=== PATIENT | male | born 1975 | race Caucasian/White ===

== ENCOUNTER 2018-12-03 19:41 | Observation (INO) | payer BC ==
[2018-12-03] MEDS ORDERED: Ondansetron 4 MG/2 ML SDV IVPUSH ONE (21:11)
[2018-12-03] MEDS ORDERED: Ketorolac 30 MG/ML SDV IVPUSH ONE (21:11)
[2018-12-03] MEDS ORDERED: Sodium Chloride 0.9% 1,000 ML IV ONE (21:11)
[2018-12-03] MEDS ORDERED: Promethazine 25 MG/ML SDV IM ONE (21:55)
[2018-12-03 21:59] LABS: CHLORIDE,CL 97 mmol/L (98-107); SODIUM,NA 132 mmol/L (136-148)
--- NOTE | 2018-12-03 22:16 | EDM.PDOC ---
ED HPI GENERAL MEDICAL PROBLEM - General Chief Complaint: Genitourinary Problem Stated Complaint: BLADDER INFECTION Time Seen by Provider: 12/03/18 22:14 Source of Information: Reports: Patient - History of Present Illness INITIAL COMMENTS - FREE TEXT/NARRATIVE: HISTORY AND PHYSICAL: History of present illness: []Patient presents with complaint of dysuria initially, so complained of crampy sensation over his bladder After approximately 30 minutes here in the ER he began to complain of kidney pain and lower abdominal pain as well as low-grade temperature 100.4 nausea No vomiting chills sweats no chest pain shortness breath headache dizziness palpitation no bowel symptoms Review of systems: As per history of present illness and below otherwise all systems reviewed and negative. Past medical history: As per history of present illness and as reviewed below otherwise noncontributory. Surgical history: As per history of present illness and as reviewed below otherwise noncontributory. Social history: No reported history of drug or alcohol abuse. Family history: As per history of present illness and as reviewed below otherwise noncontributory. Physical exam: HEENT: Atraumatic, normocephalic, pupils reactive, negative for conjunctival pallor or scleral icterus, mucous membranes moist, throat clear, neck supple, nontender, trachea midline. Lungs: Clear to auscultation, breath sounds equal bilaterally, chest nontender. Heart: S1S2, regular, negative for clicks, rubs, or JVD. Abdomen: Soft, nondistended, tender in right lower quadrant with guarding Negative for masses or hepatosplenomegaly. Negative for costovertebral tenderness. Pelvis: Stable nontender. Genitourinary: Deferred. Rectal: Deferred. Extremities: Atraumatic, negative for cords or calf pain. Neurovascular unremarkable. Neuro: Awake, alert, oriented. Cranial nerves II through XII unremarkable. Cerebellum unremarkable. Motor and sensory unremarkable throughout. Exam nonfocal. Diagnostics: [CBC CMP UA cultures 2 lactic whole blood, troponin lipase Chest x-ray CT abdomen pelvis with and without contrast ] EKG Therapeutics: [Normal saline Toradol Zofran Phenergan 25 mg IM 1 g Rocephin IM ] Impression: [ fever Abdominal pain] Definitive disposition and diagnosis as appropriate pending reevaluation and review of above. Treatments [employer]PER[employer]OR W[employer]OUR: Reports: NSAIDS general Pain Score (Numeric/FACES): 9 Right Lower Abdominal Pain Score (Numeric/FACES): 0 Left Lower Abdomen Pain Score (Numeric/FACES): 7 Chest Pain Score (Numeric/FACES): 7 - Related Data Allergies Allergy/AdvReac Type Severity Reaction Status Date / Time exenatide [From Bydureon] Allergy Rash Verified 12/04/18 09:11 metformin Allergy Rash Verified 12/03/18 19:58 morphine Allergy Rash Verified 09/18/14 10:54 pentazocine [From Talwin] Allergy Rash Verified 12/04/18 09:07 Home Meds: Home Meds Lisinopril 30 mg PO DAILY 09/18/14 [History] Amitriptyline [Elavil] 50 mg PO 12/03/18 [History] Dapagliflozin Propanediol [Farxiga] 10 mg PO DAILY 12/03/18 [History] Insulin Degludec [Tresiba] 50 unit SQ DAILY 12/03/18 [History] Rosuvastatin [Crestor] 5 mg PO DAILY 12/03/18 [History] hydroCHLOROthiazide [Hydrochlorothiazide] 12.5 mg PO DAILY 12/03/18 [History] Dulaglutide [Trulicity] 1.5 mg SQ WEEKLY 12/04/18 [History] amLODIPine [Norvasc] 2.5 mg PO DAILY 12/04/18 [History] Levofloxacin 750 mg PO DAILY #3 tablet 12/06/18 [Rx] Past Medical History HEENT History: Reports: Impaired Vision Cardiovascular History: Reports: High Cholesterol, Hypertension Respiratory History: Reports: None Gastrointestinal History: Reports: None Genitourinary History: Reports: None Musculoskeletal History: Reports: Arthritis Neurological History: Reports: None, Migraines Psychiatric History: Reports: None Endocrine/Metabolic History: Reports: Diabetes, Type II Hematologic History: Reports: None Oncologic (Cancer) History: Reports: None Dermatologic History: Reports: None - Infectious Disease History Infectious Disease History: Reports: Chicken Pox Social & Family History - Family History Family Medical History: Noncontributory - Tobacco Use Smoking Status *Q: Former Smoker Used Tobacco, but Quit: Yes Month/Year Tobacco Last Used: 1999 - Recreational Drug Use Recreational Drug Use: Yes Course - Vital Signs Last Recorded V/S: Last Vital Signs Temp 97.1 F 12/06/18 07:24 Pulse 82 12/06/18 07:24 Resp 18 12/06/18 07:24 BP 153/96 H 12/06/18 07:24 Pulse Ox 94 L 12/06/18 07:24 - Orders/Labs/Meds Labs: Laboratory Tests 12/03/18 12/03/18 12/03/18 Range/Units 20:10 20:10 21:28 WBC 24.60 H (4.0-11.0) K/uL RBC 5.48 (4.50-5.90) M/uL Hgb 16.0 (13.0-17.0) g/dL Hct 46.9 (38.0-50.0) % MCV 85.6 (80.0-98.0) fL MCH 29.2 (27.0-32.0) pg MCHC 34.1 (31.0-37.0) g/dL RDW Std Deviation 41.4 (28.0-62.0) fl RDW Coeff of Papo 13 (11.0-15.0) % Plt Count 214 (150-400) K/uL MPV 11.00 (7.40-12.00) fL Add Manual Diff YES Neutrophils % (Manual) 76 (48.0-80.0) % Band Neutrophils % 11 % Lymphocytes % (Manual) 8 L (16.0-40.0) % Monocytes % (Manual) 5 (0.0-15.0) % Nucleated RBC % 0.0 /100WBC Absolute Seg Neuts 18.7 H (1.4-5.7) Band Neutrophils # 2.7 Lymphocytes # (Manual) 2.0 (0.6-2.4) Monocytes # (Manual) 1.2 H (0.0-0.8) Nucleated RBCs # 0 K/uL Lactate (0.20-2.00) mmol/L Sodium (136-148) mmol/L Potassium (3.5-5.1) mmol/L Chloride (98-107) mmol/L Carbon Dioxide (21.0-32.0) mmol/L BUN (7.0-18.0) mg/dL Creatinine (0.8-1.3) mg/dL Est Cr Clr Drug Dosing mL/min Estimated GFR (MDRD) ml/min Glucose (74-106) mg/dL Calcium (8.5-10.1) mg/dL Total Bilirubin (0.2-1.0) mg/dL AST (15-37) IU/L ALT (14-63) IU/L Alkaline Phosphatase (46-116) U/L Troponin I (0.000-0.056) ng/mL Total Protein (6.4-8.2) g/dL Albumin (3.4-5.0) g/dL Globulin (2.6-4.0) g/dL Albumin/Globulin Ratio (0.9-1.6) Lipase (73-393) U/L Urine Color YELLOW Urine Appearance CLEAR Urine pH 5.5 (5.0-8.0) Ur Specific [place] 1.010 (1.001-1.035) Urine Protein NEGATIVE (NEGATIVE) mg/dL Urine Glucose (UA) >=1000 (NEGATIVE) mg/dL Urine Ketones NEGATIVE (NEGATIVE) mg/dL Urine Occult Blood NEGATIVE (NEGATIVE) Urine Nitrite NEGATIVE (NEGATIVE) Urine Bilirubin NEGATIVE (NEGATIVE) Urine Urobilinogen 0.2 (<2.0) EU/dL Ur Leukocyte Esterase NEGATIVE (NEGATIVE) Chlamydia/GC Source URINE C.trachomatis RNA (TMA) Negative (Negative) N.gonorrhoeae RNA (TMA) Negative (Negative) 12/03/18 12/03/18 12/03/18 Range/Units 21:28 21:28 21:28 WBC (4.0-11.0) K/uL RBC (4.50-5.90) M/uL Hgb (13.0-17.0) g/dL Hct (38.0-50.0) % MCV (80.0-98.0) fL MCH (27.0-32.0) pg MCHC (31.0-37.0) g/dL RDW Std Deviation (28.0-62.0) fl RDW Coeff of Papo (11.0-15.0) % Plt Count (150-400) K/uL MPV (7.40-12.00) fL Add Manual Diff Neutrophils % (Manual) (48.0-80.0) % Band Neutrophils % % Lymphocytes % (Manual) (16.0-40.0) % Monocytes % (Manual) (0.0-15.0) % Nucleated RBC % /100WBC Absolute Seg Neuts (1.4-5.7) Band Neutrophils # Lymphocytes # (Manual) (0.6-2.4) Monocytes # (Manual) (0.0-0.8) Nucleated RBCs # K/uL Lactate 2.0 (0.20-2.00) mmol/L Sodium 132 L (136-148) mmol/L Potassium 3.6 (3.5-5.1) mmol/L Chloride 97 L (98-107) mmol/L Carbon Dioxide 23.8 (21.0-32.0) mmol/L BUN 18 (7.0-18.0) mg/dL Creatinine 1.2 (0.8-1.3) mg/dL Est Cr Clr Drug Dosing 90.38 mL/min Estimated GFR (MDRD) > 60.0 ml/min Glucose 178 H (74-106) mg/dL Calcium 9.5 (8.5-10.1) mg/dL Total Bilirubin 1.5 H (0.2-1.0) mg/dL AST 19 (15-37) IU/L ALT 37 (14-63) IU/L Alkaline Phosphatase 82 (46-116) U/L Troponin I < 0.050 (0.000-0.056) ng/mL Total Protein 8.3 H (6.4-8.2) g/dL Albumin 4.3 (3.4-5.0) g/dL Globulin 4.0 (2.6-4.0) g/dL Albumin/Globulin Ratio 1.1 (0.9-1.6) Lipase 100 (73-393) U/L Urine Color Urine Appearance Urine pH (5.0-8.0) Ur Specific [place] (1.001-1.035) Urine Protein (NEGATIVE) mg/dL Urine Glucose (UA) (NEGATIVE) mg/dL Urine Ketones (NEGATIVE) mg/dL Urine Occult Blood (NEGATIVE) Urine Nitrite (NEGATIVE) Urine Bilirubin (NEGATIVE) Urine Urobilinogen (<2.0) EU/dL Ur Leukocyte Esterase (NEGATIVE) Chlamydia/GC Source C.trachomatis RNA (TMA) (Negative) N.gonorrhoeae RNA (TMA) (Negative) Meds: Medications Discontinued Medications Generic Name Dose Route Start Last Admin Trade Name Freq PRN Reason Stop Dose Admin Acetaminophen 650 mg 12/05/18 16:59 12/05/18 17:09 Tylenol PO 650 mg Q6H PRN Administration Pain Artificial Tears 1 each 12/04/18 17:36 12/04/18 18:55 Refresh Plus 0.5% EYEBOTH 1 drop Q2H PRN Administration Dry Eyes Bupivacaine HCl Confirm 12/04/18 11:10 Marcaine 0.5% Administered 12/04/18 11:11 Dose 30 ml .ROUTE .STK-MED ONE Diphenhydramine HCl 50 mg 12/04/18 01:15 Benadryl IVPUSH Q4H PRN Itching Enoxaparin Sodium 40 mg 12/05/18 14:30 12/05/18 15:20 Lovenox SUBCUT 40 mg Q24H DEMARIO Administration Fentanyl Confirm 12/04/18 11:03 Sublimaze Administered 12/04/18 11:04 Dose 250 mcg .ROUTE .STK-MED ONE Glycopyrrolate Confirm 12/04/18 11:05 Robinul Administered 12/04/18 11:06 Dose 0.8 mg .ROUTE .STK-MED ONE Hydralazine HCl 10 mg 12/04/18 01:22 Apresoline IVPUSH Q4H PRN Hypertension Hydromorphone HCl 1 mg 12/03/18 22:41 12/03/18 22:49 Dilaudid IVPUSH 12/03/18 22:42 1 mg ONETIME ONE Administration Hydromorphone HCl 0.5 mg 12/04/18 01:15 Dilaudid IVPUSH Q1H PRN Pain (severe 7-10) Hydromorphone HCl 0.5 mg 12/04/18 02:05 12/04/18 10:06 Dilaudid IV 0.5 mg Q1H PRN Administration pain Sodium Chloride 1,000 mls @ 999 mls/hr 12/03/18 21:11 12/03/18 21:30 Normal Saline IV 12/03/18 22:11 999 mls/hr STAT ONE Administration Sodium Chloride 1,000 mls @ 125 mls/hr 12/03/18 23:00 12/04/18 21:44 Normal Saline IV 400 mls/hr STAT DEMARIO Administration Ceftriaxone Sodium/Dextrose 1 50 mls @ 100 mls/hr 12/03/18 23:12 12/03/18 23: 35 gm/ Premix IV 12/03/18 23:41 100 mls/hr ONETIME ONE Administration Piperacillin Sod/Tazobactam 50 mls @ 100 mls/hr 12/04/18 01:15 12/06/18 06:31 Sod 3.375 gm/ Sodium Chloride IV 100 mls/hr Q6H DEMARIO Administration Sodium Chloride 1,000 mls @ 150 mls/hr 12/04/18 01:15 12/05/18 10:27 Normal Saline IV 150 mls/hr ASDIRECTED DEMARIO Administration Sodium Chloride 1,000 mls @ 1,000 mls/hr 12/04/18 01:27 12/04/18 02:35 Normal Saline IV 12/04/18 02:26 Not Given .Bolus ONE Acetaminophen 1,000 mg/ Premix 100 mls @ 400 mls/hr 12/04/18 14:45 12/05/18 09:19 IV 12/05/18 14:51 400 mls/hr Q6H DEMARIO Administration Insulin Aspart 0 unit 12/04/18 07:30 12/06/18 07:40 Novolog SUBCUT 1 unit ACBREAKFASTANDBED DEMARIO Administration Protocol Iopamidol 100 ml 12/03/18 22:31 12/03/18 22:31 Isovue Multipack-370 (76%) IVPUSH 12/03/18 22:32 100 ml ONETIME STA Administration Ketorolac Tromethamine 30 mg 12/03/18 21:11 12/03/18 21:31 Toradol IVPUSH 12/03/18 21:12 30 mg ONETIME ONE Administration Ketorolac Tromethamine 30 mg 12/04/18 19:00 12/06/18 06:27 Toradol IVPUSH 12/09/18 16:58 30 mg Q6H DEMARIO Administration Neostigmine Methylsulfate Confirm 12/04/18 11:05 Neostigmine Administered 12/04/18 11:06 Dose 5 mg .ROUTE .STK-MED ONE Ondansetron HCl 8 mg 12/03/18 21:11 12/03/18 21:31 Zofran IVPUSH 12/03/18 21:12 8 mg ONETIME ONE Administration Ondansetron HCl 4 mg 12/04/18 01:15 Zofran IVPUSH Q6H PRN Nausea/Vomiting Ondansetron HCl Confirm 12/04/18 11:06 Zofran Administered 12/04/18 11:07 Dose 4 mg .ROUTE .STK-MED ONE Oxycodone HCl 10 mg 12/04/18 16:57 12/04/18 18:56 Oxycodone PO 10 mg Q4H PRN Administration Abdominal Pain Oxycodone/Acetaminophen 2 tab 12/04/18 01:15 12/04/18 06:26 Percocet 325-5 Mg PO 2 tab Q4H PRN Administration Pain (moderate 4-6) Pantoprazole Sodium 40 mg 12/04/18 01:30 12/06/18 08:14 Protonix Iv IVPUSH 40 mg DAILY DEMARIO Administration Phenylephrine HCl Confirm 12/04/18 11:48 Phenylephrine In Ns 100 Mcg/Ml Administered 12/04/18 11:49 Dose 1 mg .ROUTE .STK-MED ONE Polyethylene Glycol 17 gm 12/05/18 12:22 12/05/18 12:38 Miralax PO 17 gm DAILY PRN Administration Constipation Polyethylene Glycol 17 gm 12/06/18 09:00 12/06/18 08:14 Miralax PO 17 gm DAILY DEMARIO Administration Promethazine HCl 25 mg 12/03/18 21:55 12/04/18 00:22 Phenergan IM 12/03/18 21:56 Not Given ONETIME ONE Promethazine HCl 25 mg 12/04/18 01:15 Phenergan IM Q6H PRN Nausea Propofol Confirm 12/04/18 11:03 Diprivan 20 Ml Administered 12/04/18 11:04 Dose 200 mg .ROUTE .STK-MED ONE Sodium Chloride 10 ml 12/04/18 01:15 Saline Flush FLUSH ASDIRECTED PRN Keep Vein Open Sodium Chloride 2.5 ml 12/04/18 01:15 Saline Flush FLUSH ASDIRECTED PRN Keep Vein Open Sodium Chloride 10 ml 12/04/18 01:15 Normal Saline IV ASDIRECTED PRN IV Use Succinylcholine Chloride Confirm 12/04/18 11:05 Quelicin Administered 12/04/18 11:06 Dose 200 mg .ROUTE .STK-MED ONE Departure - Departure Time of Disposition: 06:45 Disposition: Refer to Observation Condition: Fair Clinical Impression: Abdominal pain - Discharge Information
[2018-12-03] MEDS ORDERED: Iopamidol 755 MG/ML 500 ML Multipack Bottle IVPUSH STA (22:31)
[2018-12-03] MEDS ORDERED: HYDROmorphone 1 MG/ML Syringe IVPUSH ONE (22:41)
--- NOTE | 2018-12-03 22:46 | CR ---
Indication: Chest pain, shortness of breath Technique: Chest 1 view Comparison: None Findings/Impression: Normal cardiomediastinal silhouette. Minimal linear atelectasis or infiltrate at the left lung base. Calcified granuloma left upper lobe. No effusion or pneumothorax. No acute osseous abnormality. Dictated by Demi Espinal MD @ Dec 03 2018 10:45PM Signed by Dr. Demi Espinal @ Dec 03 2018 10:45PM
[2018-12-03] MEDS: Sodium Chloride 0.9% 1,000 ML IV SCH (23:02)
--- NOTE | 2018-12-03 23:07 | CT ---
INDICATION: Urinary and kidney pain, constipation TECHNIQUE: CT abdomen and pelvis acquired without and with 100 cc Isovue 370 IV contrast. COMPARISON: None FINDINGS: Lower chest: Linear atelectasis at both lung bases, left greater than right. Liver: Unremarkable. Spleen: Unremarkable. Pancreas: Unremarkable. Gallbladder and bile ducts: Unremarkable. Adrenal glands: Unremarkable. Kidneys: Noncontrast images demonstrate no collecting system stone. No hydronephrosis. GI tract: Moderate amount of feces in the colon. No bowel obstruction. Vascular structures: Unremarkable. Lymph nodes: Unremarkable. Miscellaneous: Unremarkable. No free air or significant free fluid. Pelvic Organs: Unremarkable. Bones: Unremarkable for age. IMPRESSION: No renal stone or hydronephrosis. Unremarkable urinary bladder. Moderate amount of feces in the colon. No acute intra-abdominal inflammatory process identified. Please note that all CT scans at this facility use dose modulation, iterative reconstruction, and/or weight-based dosing when appropriate to reduce radiation dose to as low as reasonably achievable. Dictated by Demi Espinal MD @ Dec 03 2018 10:59PM Signed by Dr. Demi Espinal @ Dec 03 2018 11:06PM
[2018-12-03] MEDS ORDERED: cefTRIAXone 1 GM in Premix Bag 1 BAG IV ONE (23:12)
--- NOTE | 2018-12-04 00:22 | US ---
INDICATION: Abdominal pain for 1 day TECHNIQUE: Ultrasound abdomen limited. Sonographic images of the right upper quadrant were obtained using damon-scale and color Doppler images. COMPARISON: None FINDINGS: Study somewhat limited due to patient body habitus. Liver: Normal in size and echotexture. No masses. No intrahepatic biliary dilatation. Gallbladder: No stones or sludge. Normal wall thickness. No pericholecystic fluid. Common bile duct: 3 mm. Pancreas: Not clearly seen. Right kidney: 13.3 x 7.6 x 7.0 cm. Normal echotexture and cortex. No masses, stones, or hydronephrosis. IMPRESSION: Limited exam due to patient body habitus. No cholelithiasis or acute abnormality identified. Note that the pancreas was poorly visualized. Dictated by Demi Espinal MD @ Dec 04 2018 12:20AM Signed by Dr. Demi Espinal @ Dec 04 2018 12:20AM
[2018-12-04] MEDS ORDERED: Sodium Chloride 0.9% 10 ML Syringe FLUSH PRN (01:15)
[2018-12-04] MEDS ORDERED: Sodium Chloride 0.9% 10 ML SDV IV PRN (01:15)
[2018-12-04] MEDS ORDERED: diphenhydrAMINE 50 MG/ML SDV IVPUSH PRN (01:15)
[2018-12-04] MEDS ORDERED: HYDROmorphone 2 MG/ML SDV IVPUSH PRN (01:15)
[2018-12-04] MEDS ORDERED: Sodium Chloride 0.9% 2.5 ML Syringe FLUSH PRN (01:15)
[2018-12-04] MEDS ORDERED: Promethazine 25 MG/ML SDV IM PRN (01:15)
[2018-12-04] MEDS ORDERED: Ondansetron 4 MG/2 ML SDV IVPUSH PRN (01:15)
[2018-12-04] MEDS ORDERED: hydrALAZINE 20 MG/ML SDV IVPUSH PRN (01:22)
[2018-12-04] MEDS ORDERED: Sodium Chloride 0.9% 1,000 ML IV ONE (01:27)
[2018-12-04] MEDS: Acetaminophen/oxyCODONE 325-5 MG Tab PO PRN ×2 (01:30→06:26)
[2018-12-04] MEDS: Piperacillin/Tazobactam 3.375 GM in Sodium Chloride 0.9% 50 ML IV SCH ×4 (01:31→18:58)
--- NOTE | 2018-12-04 01:34 | PCM.HP ---
H&P History of Present Illness - General Date of Service: 12/04/18 Admit Problem/Dx: Admission Diagnosis/Problem Admission Diagnosis/Problem Abdominal pain Source of Information: Patient History Limitations: Reports: No Limitations - History of Present Illness Initial Comments - Free Text/Narative: Patient is a 43 year old male with a history of diabetes and hypertension who presents with lower abdominal pain and dysuria since yesterday afternoon. This was associated nausea. He complained of urgency as well. The pain radiated to his back bilaterally. He had a normal BM yesterday. He denies fevers, chills before admission. He was tachycardic on arrival. He developed a fever while in the ER. His WBC was 24K and he had a lactate of 2.0. He had no left shift. An US was performed which was normal, however the study was limited by his body habitus. He had a CT abdomen/pelvis with IV fluids. This was normal as well however the appendix was not visualized. He was given 1 L IV fluids, toradol and dilaudid with improvement in his fever, pain and tachycardia. general Pain Score (Numeric/FACES): 9 - Related Data Allergies/Adverse Reactions: Allergies Allergy/AdvReac Type Severity Reaction Status Date / Time acetaminophen [From [place]] Allergy Rash Verified 09/18/14 10:54 metformin Allergy Rash Verified 12/03/18 19:58 morphine Allergy Rash Verified 09/18/14 10:54 pentazocine HCl Allergy Rash Verified 09/18/14 10:54 [From [place]] Home Medications: Home Meds Dulaglutide [Trulicity] 0.75 mg SQ WEEKLY 09/18/14 [History] Lisinopril 30 mg PO DAILY 09/18/14 [History] Amitriptyline [Elavil] 10 mg PO 12/03/18 [History] Dapagliflozin Propanediol [Farxiga] 10 mg PO DAILY 12/03/18 [History] Insulin Degludec [Tresiba] 50 unit SQ DAILY 12/03/18 [History] Rosuvastatin [Crestor] 5 mg PO DAILY 12/03/18 [History] hydroCHLOROthiazide [Hydrochlorothiazide] 12.5 mg PO DAILY 12/03/18 [History] Past Medical History HEENT History: Reports: Impaired Vision Cardiovascular History: Reports: High Cholesterol, Hypertension Respiratory History: Reports: None Gastrointestinal History: Reports: None Genitourinary History: Reports: None Musculoskeletal History: Reports: Arthritis Neurological History: Reports: None, Migraines Psychiatric History: Reports: None Endocrine/Metabolic History: Reports: Diabetes, Type II Hematologic History: Reports: None Oncologic (Cancer) History: Reports: None Dermatologic History: Reports: None - Infectious Disease History Infectious Disease History: Reports: Chicken Pox Social & Family History - Family History Family Medical History: Noncontributory - Tobacco Use Smoking Status *Q: Former Smoker Used Tobacco, but Quit: Yes Month/Year Tobacco Last Used: 1999 - Recreational Drug Use Recreational Drug Use: Yes H&P Review of Systems - Review of Systems: Review Of Systems: See Below Exam - Exam Exam: See Below - Vital Signs Vital Signs: Last Vital Signs Temp 38.6 C H 12/03/18 23:03 Pulse 109 H 12/03/18 23:03 Resp 20 12/03/18 23:03 BP 131/90 12/03/18 23:03 Pulse Ox 93 L 12/03/18 23:03 Weight: 142.882 kg - Exam General: Alert, Oriented HEENT: Conjunctiva Clear, Mucosa Moist & [place], Posterior Pharynx Clear Neck: Supple Lungs: Clear to Auscultation, Normal Respiratory Effort Cardiovascular: Regular Rate, Regular Rhythm GI/Abdominal Exam: Normal Bowel Sounds, Soft, No Distention, No Mass, Tender ( mild-moderate tenderness along the lower abdomen. ). No: Guarding, Rigid, Rebound Back Exam: Normal Inspection, Full Range of Motion Extremities: Normal Inspection - Patient Data Lab Results Last 24 hrs: Laboratory Results - last 24 hr 12/03/18 12/03/18 12/03/18 Range/Units 20:10 21:28 21:28 WBC 24.60 H (4.0-11.0) K/uL RBC 5.48 (4.50-5.90) M/uL Hgb 16.0 (13.0-17.0) g/dL Hct 46.9 (38.0-50.0) % MCV 85.6 (80.0-98.0) fL MCH 29.2 (27.0-32.0) pg MCHC 34.1 (31.0-37.0) g/dL RDW Std Deviation 41.4 (28.0-62.0) fl RDW Coeff of Papo 13 (11.0-15.0) % Plt Count 214 (150-400) K/uL MPV 11.00 (7.40-12.00) fL Add Manual Diff YES Neutrophils % (Manual) 76 (48.0-80.0) % Band Neutrophils % 11 % Lymphocytes % (Manual) 8 L (16.0-40.0) % Monocytes % (Manual) 5 (0.0-15.0) % Nucleated RBC % 0.0 /100WBC Absolute Seg Neuts 18.7 H (1.4-5.7) Band Neutrophils # 2.7 Lymphocytes # (Manual) 2.0 (0.6-2.4) Monocytes # (Manual) 1.2 H (0.0-0.8) Nucleated RBCs # 0 K/uL Lactate (0.20-2.00) mmol/L Sodium 132 L (136-148) mmol/L Potassium 3.6 (3.5-5.1) mmol/L Chloride 97 L (98-107) mmol/L Carbon Dioxide 23.8 (21.0-32.0) mmol/L BUN 18 (7.0-18.0) mg/dL Creatinine 1.2 (0.8-1.3) mg/dL Est Cr Clr Drug Dosing 90.38 mL/min Estimated GFR (MDRD) > 60.0 ml/min Glucose 178 H (74-106) mg/dL Calcium 9.5 (8.5-10.1) mg/dL Total Bilirubin 1.5 H (0.2-1.0) mg/dL AST 19 (15-37) IU/L ALT 37 (14-63) IU/L Alkaline Phosphatase 82 (46-116) U/L Troponin I (0.000-0.056) ng/mL Total Protein 8.3 H (6.4-8.2) g/dL Albumin 4.3 (3.4-5.0) g/dL Globulin 4.0 (2.6-4.0) g/dL Albumin/Globulin Ratio 1.1 (0.9-1.6) Lipase 100 (73-393) U/L Urine Color YELLOW Urine Appearance CLEAR Urine pH 5.5 (5.0-8.0) Ur Specific [place] 1.010 (1.001-1.035) Urine Protein NEGATIVE (NEGATIVE) mg/dL Urine Glucose (UA) >=1000 (NEGATIVE) mg/dL Urine Ketones NEGATIVE (NEGATIVE) mg/dL Urine Occult Blood NEGATIVE (NEGATIVE) Urine Nitrite NEGATIVE (NEGATIVE) Urine Bilirubin NEGATIVE (NEGATIVE) Urine Urobilinogen 0.2 (<2.0) EU/dL Ur Leukocyte Esterase NEGATIVE (NEGATIVE) 12/03/18 12/03/18 Range/Units 21:28 21:28 WBC (4.0-11.0) K/uL RBC (4.50-5.90) M/uL Hgb (13.0-17.0) g/dL Hct (38.0-50.0) % MCV (80.0-98.0) fL MCH (27.0-32.0) pg MCHC (31.0-37.0) g/dL RDW Std Deviation (28.0-62.0) fl RDW Coeff of Papo (11.0-15.0) % Plt Count (150-400) K/uL MPV (7.40-12.00) fL Add Manual Diff Neutrophils % (Manual) (48.0-80.0) % Band Neutrophils % % Lymphocytes % (Manual) (16.0-40.0) % Monocytes % (Manual) (0.0-15.0) % Nucleated RBC % /100WBC Absolute Seg Neuts (1.4-5.7) Band Neutrophils # Lymphocytes # (Manual) (0.6-2.4) Monocytes # (Manual) (0.0-0.8) Nucleated RBCs # K/uL Lactate 2.0 (0.20-2.00) mmol/L Sodium (136-148) mmol/L Potassium (3.5-5.1) mmol/L Chloride (98-107) mmol/L Carbon Dioxide (21.0-32.0) mmol/L BUN (7.0-18.0) mg/dL Creatinine (0.8-1.3) mg/dL Est Cr Clr Drug Dosing mL/min Estimated GFR (MDRD) ml/min Glucose (74-106) mg/dL Calcium (8.5-10.1) mg/dL Total Bilirubin (0.2-1.0) mg/dL AST (15-37) IU/L ALT (14-63) IU/L Alkaline Phosphatase (46-116) U/L Troponin I < 0.050 (0.000-0.056) ng/mL Total Protein (6.4-8.2) g/dL Albumin (3.4-5.0) g/dL Globulin (2.6-4.0) g/dL Albumin/Globulin Ratio (0.9-1.6) Lipase (73-393) U/L Urine Color Urine Appearance Urine pH (5.0-8.0) Ur Specific [place] (1.001-1.035) Urine Protein (NEGATIVE) mg/dL Urine Glucose (UA) (NEGATIVE) mg/dL Urine Ketones (NEGATIVE) mg/dL Urine Occult Blood (NEGATIVE) Urine Nitrite (NEGATIVE) Urine Bilirubin (NEGATIVE) Urine Urobilinogen (<2.0) EU/dL Ur Leukocyte Esterase (NEGATIVE) Result Diagrams: 12/03/18 21:28 12/03/18 21:28 - Problem List (1) Abdominal pain SNOMED Code(s): 45572800 ICD Code: R10.9 - UNSPECIFIED ABDOMINAL PAIN Status: Acute Current Visit : Yes (2) Leukocytosis SNOMED Code(s): 812506548, 525430303 ICD Code: D72.829 - ELEVATED WHITE BLOOD CELL COUNT, UNSPECIFIED Status: Acute Current Visit: Yes Problem List Initiated/Reviewed/Updated: Yes Orders Last 24hrs: Active Orders 24 hr Category Date Time Status Patient Status [ADT] Routine ADT 12/04/18 01:15 Ordered EKG Documentation Completion [RC] STAT Care 12/03/18 21:57 Active Intake and Output [RC] Q4HR Care 12/04/18 01:16 Ordered Notify Provider Vital Signs [RC] PRN Care 12/04/18 01:21 Ordered Oxygen Therapy [RC] PRN Care 12/04/18 01:15 Ordered RT Incentive Spirometry [RC] Q1HWA Care 12/04/18 01:15 Ordered Up ad Grazyna [RC] ASDIRECTED Care 12/04/18 01:15 Ordered Vital Signs [RC] PER UNIT ROUTINE Care 12/04/18 01:15 Ordered NPO [Nothing Per Oral Diet] [DIET] Diet 12/04/18 Breakfast Ordered CBC WITH AUTO DIFF [HEME] AM Lab 12/04/18 05:11 Ordered CHLAMYDIA AND GONORRHEA BY TMA Stat Lab 12/03/18 20:10 Received COMPREHENSIVE METABOLIC PN,CMP [CHEM] AM Lab 12/04/18 05:11 Ordered CULTURE BLOOD [BC] Stat Lab 12/03/18 21:41 Received CULTURE BLOOD [BC] Stat Lab 12/03/18 21:52 Received LACTIC ACID,WHOLE BLOOD [BG] Timed Lab 12/04/18 05:00 Ordered Acetaminophen/oxyCODONE [Percocet 325-5 MG] Med 12/04/18 01:15 Ordered 2 tab PO Q4H PRN HYDROmorphone [Dilaudid] Med 12/04/18 01:15 Ordered 0.5 mg IVPUSH Q1H PRN Insulin Aspart [NovoLOG] Med 12/04/18 07:30 Ordered See Protocol SUBCUT ACBREAKFASTANDBED Ondansetron [Zofran] Med 12/04/18 01:15 Ordered 4 mg IVPUSH Q6H PRN Pantoprazole [ProTONIX IV] Med 12/04/18 01:30 Ordered 40 mg IVPUSH DAILY Piperacillin/Tazobactam [Piperacil-Tazobact] 3.375 gm Med 12/04/18 01:15 Ordered Sodium Chloride 0.9% [Normal Saline] 50 ml IV Q6H Promethazine [Phenergan] Med 12/04/18 01:15 Ordered 25 mg IM Q6H PRN Sodium Chloride 0.9% [Normal Saline] Med 12/04/18 01:15 Ordered 10 ml IV ASDIRECTED PRN Sodium Chloride 0.9% [Normal Saline] 1,000 ml Med 12/04/18 01:27 Ordered IV .Bolus Sodium Chloride 0.9% [Normal Saline] 1,000 ml Med 12/04/18 01:15 Active IV ASDIRECTED Sodium Chloride 0.9% [Normal Saline] 1,000 ml Med 12/03/18 23:00 Active IV STAT Sodium Chloride 0.9% [Saline Flush] Med 12/04/18 01:15 Ordered 10 ml FLUSH ASDIRECTED PRN Sodium Chloride 0.9% [Saline Flush] Med 12/04/18 01:15 Ordered 2.5 ml FLUSH ASDIRECTED PRN diphenhydrAMINE [Benadryl] Med 12/04/18 01:15 Ordered 50 mg IVPUSH Q4H PRN hydrALAZINE [Apresoline] Med 12/04/18 01:22 Ordered 10 mg IVPUSH Q4H PRN Blood Culture x2 Reflex Set [OM.PC] Stat Oth 12/03/18 21:11 Ordered Peripheral IV Insertion Adult [OM.PC] Urgent Oth 12/04/18 01:15 Ordered Resuscitation Status Routine Resus Stat 12/04/18 01:15 Ordered Medication Orders Diphenhydramine HCl (Benadryl) 50 mg IVPUSH Q4H PRN PRN Reason: Itching Hydralazine HCl (Apresoline) 10 mg IVPUSH Q4H PRN PRN Reason: Hypertension Hydromorphone HCl (Dilaudid) 0.5 mg IVPUSH Q1H PRN PRN Reason: Pain (severe 7-10) Sodium Chloride (Normal Saline) 1,000 mls @ 125 mls/hr IV STAT [facility] Last Admin: 12/03/18 23:02 Dose: 125 mls/hr Piperacillin Sod/Tazobactam (Sod 3.375 gm/ Sodium Chloride) 50 mls @ 100 mls/ hr IV Q6H [facility] Sodium Chloride (Normal Saline) 1,000 mls @ 150 mls/hr IV ASDIRECTED [facility] Sodium Chloride (Normal Saline) 1,000 mls @ 1,000 mls/hr IV .Bolus ONE Stop: 12/04/18 02:26 Insulin Aspart (Novolog) 0 unit SUBCUT ACBREAKFASTANDBED [facility]; Protocol Ondansetron HCl (Zofran) 4 mg IVPUSH Q6H PRN PRN Reason: Nausea/Vomiting Oxycodone/Acetaminophen (Percocet 325-5 Mg) 2 tab PO Q4H PRN PRN Reason: Pain (moderate 4-6) Pantoprazole Sodium (Protonix Iv) 40 mg IVPUSH DAILY [facility] Promethazine HCl (Phenergan) 25 mg IM Q6H PRN PRN Reason: Nausea Sodium Chloride (Saline Flush) 10 ml FLUSH ASDIRECTED PRN PRN Reason: Keep Vein Open Sodium Chloride (Saline Flush) 2.5 ml FLUSH ASDIRECTED PRN PRN Reason: Keep Vein Open Sodium Chloride (Normal Saline) 10 ml IV ASDIRECTED PRN PRN Reason: IV Use Assessment/Plan Comment:: The patient had blood cultures drawn in the ER. At this time there is no clear source for his infection. Will admit for IVF and IV antibiotics and if his pain continues will take him for laparoscopic appendectomy. -Pain: IV Dilaudid and po Percocet prn -CV: Continue fluid resucitation. Given another 1L bolus and NS @150ml/hr. -Pulm: IS use -GI: NPO other than ice chips and sips with meds -Renal: IV NS @150ml/hr. Monitor UOP closely. CMP in am -Heme: Stable -ID: IV zosyn 3.375 q 4hr. Blood cultures pending. UA clear. -Px: No heparin, scds. IV protonix.
[2018-12-04] MEDS: HYDROmorphone 1 MG/ML Syringe IV PRN ×4 (02:26→10:06)
[2018-12-04] MEDS: Pantoprazole 40 MG Vial IVPUSH SCH ×2 (02:33→08:51)
[2018-12-04] MEDS: Sodium Chloride 0.9% 1,000 ML IV SCH ×3 (02:46→21:44)
[2018-12-04 06:23] LABS: CHLORIDE,CL 102 mmol/L (98-107); SODIUM,NA 136 mmol/L (136-148)
--- NOTE | 2018-12-04 07:53 | PCM.PREANE ---
Preanesthetic Assessment - Anesthesia/Transfusion/Family Hx Anesthesia History: Prior Anesthesia Without Reaction (ganglion wrist, bilat shoulder decompressions) Family History of Anesthesia Reaction: No Transfusion History: No Prior Transfusion(s) - Review of Systems General: No Symptoms Pulmonary: No Symptoms Cardiovascular: No Symptoms Gastrointestinal: Abdominal Pain Neurological: No Symptoms Other: Reports: None - Physical Assessment NPO Status Date: 12/03/18 O2 Sat by Pulse Oximetry: 96 Respiratory Rate: 18 Vital Signs: Last Vital Signs Temp 100.2 F 12/04/18 04:00 Pulse 95 12/04/18 04:00 Resp 18 12/04/18 04:00 BP 120/70 12/04/18 04:00 Pulse Ox 96 12/04/18 04:00 Height: 6 ft 2 in Weight: 142.383 kg ASA Class: 3 Mental Status: Alert & Oriented x3 Airway Class: Mallampati = 2 Dentition: Reports: Normal Dentition ROM/Head Extension: Full Lungs: Clear to Auscultation, Normal Respiratory Effort Cardiovascular: Regular Rate, Regular Rhythm - Lab Values: Laboratory Last Values WBC 25.11 K/uL (4.0-11.0) H 12/04/18 05:15 RBC 4.87 M/uL (4.50-5.90) 12/04/18 05:15 Hgb 13.9 g/dL (13.0-17.0) 12/04/18 05:15 Hct 42.8 % (38.0-50.0) 12/04/18 05:15 MCV 87.9 fL (80.0-98.0) 12/04/18 05:15 MCH 28.5 pg (27.0-32.0) 12/04/18 05:15 MCHC 32.5 g/dL (31.0-37.0) 12/04/18 05:15 RDW Std Deviation 43.9 fl (28.0-62.0) 12/04/18 05:15 RDW Coeff of Papo 14 % (11.0-15.0) 12/04/18 05:15 Plt Count 180 K/uL (150-400) 12/04/18 05:15 MPV 10.70 fL (7.40-12.00) 12/04/18 05:15 Neut % (Auto) 78.2 % (48.0-80.0) 12/04/18 05:15 Lymph % (Auto) 11.0 % (16.0-40.0) L 12/04/18 05:15 [place] % (Auto) 10.5 % (0.0-15.0) 12/04/18 05:15 Eos % (Auto) 0.1 % (0.0-7.0) 12/04/18 05:15 Baso % (Auto) 0.2 % (0.0-1.5) 12/04/18 05:15 Neut # (Auto) 19.6 K/uL (1.4-5.7) H 12/04/18 05:15 Lymph # (Auto) 2.8 K/uL (0.6-2.4) H 12/04/18 05:15 [place] # (Auto) 2.6 K/uL (0.0-0.8) H 12/04/18 05:15 Eos # (Auto) 0.0 K/uL (0.0-0.7) 12/04/18 05:15 Baso # (Auto) 0.0 K/uL (0.0-0.1) 12/04/18 05:15 Add Manual Diff YES 12/03/18 21:28 Neutrophils % (Manual) 76 % (48.0-80.0) 12/03/18 21:28 Band Neutrophils % 11 % 12/03/18 21:28 Lymphocytes % (Manual) 8 % (16.0-40.0) L 12/03/18 21:28 Monocytes % (Manual) 5 % (0.0-15.0) 12/03/18 21:28 Nucleated RBC % 0.0 /100WBC 12/04/18 05:15 Absolute Seg Neuts 18.7 (1.4-5.7) H 12/03/18 21:28 Band Neutrophils # 2.7 12/03/18 21:28 Lymphocytes # (Manual) 2.0 (0.6-2.4) 12/03/18 21:28 Monocytes # (Manual) 1.2 (0.0-0.8) H 12/03/18 21:28 Nucleated RBCs # 0 K/uL 12/04/18 05:15 Lactate 1.1 mmol/L (0.20-2.00) 12/04/18 05:15 Sodium 136 mmol/L (136-148) 12/04/18 05:15 Potassium 4.5 mmol/L (3.5-5.1) 12/04/18 05:15 Chloride 102 mmol/L (98-107) 12/04/18 05:15 Carbon Dioxide 26.2 mmol/L (21.0-32.0) 12/04/18 05:15 BUN 21 mg/dL (7.0-18.0) H 12/04/18 05:15 Creatinine 1.2 mg/dL (0.8-1.3) 12/04/18 05:15 Est Cr Clr Drug Dosing 90.38 mL/min 12/04/18 05:15 Estimated GFR (MDRD) > 60.0 ml/min 12/04/18 05:15 Glucose 139 mg/dL (74-106) H 12/04/18 05:15 POC Glucose 134 mg/dL (60-110) H 12/04/18 07:33 Calcium 8.2 mg/dL (8.5-10.1) L 12/04/18 05:15 Total Bilirubin 1.5 mg/dL (0.2-1.0) H 12/04/18 05:15 AST 15 IU/L (15-37) 12/04/18 05:15 ALT 27 IU/L (14-63) 12/04/18 05:15 Alkaline Phosphatase 63 U/L (46-116) 12/04/18 05:15 Troponin I < 0.050 ng/mL (0.000-0.056) 12/03/18 21:28 Total Protein 6.9 g/dL (6.4-8.2) 12/04/18 05:15 Albumin 3.4 g/dL (3.4-5.0) 12/04/18 05:15 Globulin 3.5 g/dL (2.6-4.0) 12/04/18 05:15 Albumin/Globulin Ratio 1.0 (0.9-1.6) 12/04/18 05:15 Lipase 100 U/L (73-393) 12/03/18 21:28 Urine Color YELLOW 12/03/18 20:10 Urine Appearance CLEAR 12/03/18 20:10 Urine pH 5.5 (5.0-8.0) 12/03/18 20:10 Ur Specific [place] 1.010 (1.001-1.035) 12/03/18 20:10 Urine Protein NEGATIVE mg/dL (NEGATIVE) 12/03/18 20:10 Urine Glucose (UA) >=1000 mg/dL (NEGATIVE) 12/03/18 20:10 Urine Ketones NEGATIVE mg/dL (NEGATIVE) 12/03/18 20:10 Urine Occult Blood NEGATIVE (NEGATIVE) 12/03/18 20:10 Urine Nitrite NEGATIVE (NEGATIVE) 12/03/18 20:10 Urine Bilirubin NEGATIVE (NEGATIVE) 12/03/18 20:10 Urine Urobilinogen 0.2 EU/dL (<2.0) 12/03/18 20:10 Ur Leukocyte Esterase NEGATIVE (NEGATIVE) 12/03/18 20:10 - Allergies Allergies/Adverse Reactions: Allergies Allergy/AdvReac Type Severity Reaction Status Date / Time acetaminophen [From [place]] Allergy Rash Verified 09/18/14 10:54 metformin Allergy Rash Verified 12/03/18 19:58 morphine Allergy Rash Verified 09/18/14 10:54 pentazocine HCl Allergy Rash Verified 09/18/14 10:54 [From [place]] - Blood Blood Available: No - Anesthesia Plan Pre-Op Medication Ordered: None - Acknowledgements Anesthesia Type Planned: General Anesthesia Pt an Appropriate Candidate for the Planned Anesthesia: Yes Additional Comments: PMH: morbid obesity, DM2- on insulin, htn, PLAN: get PreAnesthesia Questionnaire HEENT History: Reports: Impaired Vision Cardiovascular History: Reports: High Cholesterol, Hypertension Respiratory History: Reports: None Gastrointestinal History: Reports: None Genitourinary History: Reports: None Musculoskeletal History: Reports: Arthritis Neurological History: Reports: Migraines Psychiatric History: Reports: None Endocrine/Metabolic History: Reports: Diabetes, Type II Hematologic History: Reports: None Oncologic (Cancer) History: Reports: None Dermatologic History: Reports: None - Infectious Disease History Infectious Disease History: Reports: Chicken Pox - SUBSTANCE USE Smoking Status *Q: Former Smoker Tobacco Use Within Last Twelve Months: No Second Hand Smoke Exposure: No Recreational Drug Use History: No - HOME MEDS Home Medications: Home Meds Dulaglutide [Trulicity] 0.75 mg SQ WEEKLY 09/18/14 [History] Lisinopril 30 mg PO DAILY 09/18/14 [History] Amitriptyline [Elavil] 10 mg PO 12/03/18 [History] Dapagliflozin Propanediol [Farxiga] 10 mg PO DAILY 12/03/18 [History] Insulin Degludec [Tresiba] 50 unit SQ DAILY 12/03/18 [History] Rosuvastatin [Crestor] 5 mg PO DAILY 12/03/18 [History] hydroCHLOROthiazide [Hydrochlorothiazide] 12.5 mg PO DAILY 12/03/18 [History] - CURRENT (IN HOUSE) MEDS Current Meds: Current Medications Diphenhydramine HCl (Benadryl) 50 mg IVPUSH Q4H PRN PRN Reason: Itching Hydralazine HCl (Apresoline) 10 mg IVPUSH Q4H PRN PRN Reason: Hypertension Hydromorphone HCl (Dilaudid) 0.5 mg IV Q1H PRN PRN Reason: pain Last Admin: 12/04/18 05:34 Dose: 0.5 mg Sodium Chloride (Normal Saline) 1,000 mls @ 125 mls/hr IV STAT [facility] Last Infusion: 12/04/18 01:31 Dose: 400 mls/hr Piperacillin Sod/Tazobactam (Sod 3.375 gm/ Sodium Chloride) 50 mls @ 100 mls/ hr IV Q6H [facility] Last Admin: 12/04/18 06:19 Dose: 100 mls/hr Sodium Chloride (Normal Saline) 1,000 mls @ 150 mls/hr IV ASDIRECTED [facility] Last Admin: 12/04/18 02:46 Dose: 150 mls/hr Insulin Aspart (Novolog) 0 unit SUBCUT ACBREAKFASTANDBED [facility]; Protocol Ondansetron HCl (Zofran) 4 mg IVPUSH Q6H PRN PRN Reason: Nausea/Vomiting Oxycodone/Acetaminophen (Percocet 325-5 Mg) 2 tab PO Q4H PRN PRN Reason: Pain (moderate 4-6) Last Admin: 12/04/18 06:26 Dose: 2 tab Pantoprazole Sodium (Protonix Iv) 40 mg IVPUSH DAILY [facility] Last Admin: 12/04/18 02:33 Dose: 40 mg Promethazine HCl (Phenergan) 25 mg IM Q6H PRN PRN Reason: Nausea Sodium Chloride (Saline Flush) 10 ml FLUSH ASDIRECTED PRN PRN Reason: Keep Vein Open Sodium Chloride (Saline Flush) 2.5 ml FLUSH ASDIRECTED PRN PRN Reason: Keep Vein Open Sodium Chloride (Normal Saline) 10 ml IV ASDIRECTED PRN PRN Reason: IV Use Discontinued Medications Hydromorphone HCl (Dilaudid) 1 mg IVPUSH ONETIME ONE Stop: 12/03/18 22:42 Last Admin: 12/03/18 22:49 Dose: 1 mg Hydromorphone HCl (Dilaudid) 0.5 mg IVPUSH Q1H PRN PRN Reason: Pain (severe 7-10) Sodium Chloride (Normal Saline) 1,000 mls @ 999 mls/hr IV STAT ONE Stop: 12/03/18 22:11 Last Admin: 12/03/18 21:30 Dose: 999 mls/hr Ceftriaxone Sodium/Dextrose 1 (gm/ Premix) 50 mls @ 100 mls/hr IV ONETIME ONE Stop: 12/03/18 23:41 Last Admin: 12/03/18 23:35 Dose: 100 mls/hr Sodium Chloride (Normal Saline) 1,000 mls @ 1,000 mls/hr IV .Bolus ONE Stop: 12/04/18 02:26 Last Admin: 12/04/18 02:35 Dose: Not Given Iopamidol (Isovue Multipack-370 (76%)) 100 ml IVPUSH ONETIME STA Stop: 12/03/18 22:32 Last Admin: 12/03/18 22:31 Dose: 100 ml Ketorolac Tromethamine (Toradol) 30 mg IVPUSH ONETIME ONE Stop: 12/03/18 21:12 Last Admin: 12/03/18 21:31 Dose: 30 mg Ondansetron HCl (Zofran) 8 mg IVPUSH ONETIME ONE Stop: 12/03/18 21:12 Last Admin: 12/03/18 21:31 Dose: 8 mg Promethazine HCl (Phenergan) 25 mg IM ONETIME ONE Stop: 12/03/18 21:56 Last Admin: 12/04/18 00:22 Dose: Not Given
--- NOTE | 2018-12-04 08:04 | PCM.SURGPN ---
- General Info Functional Status: Reports: Other (Pain worse and now located in the RLQ. Febrile again overnight. WBC unchanged. ) - Review of Systems General: Reports: Fever, Fatigue HEENT: Reports: No Symptoms Pulmonary: Reports: No Symptoms Cardiovascular: Reports: No Symptoms Gastrointestinal: Reports: Abdominal Pain Genitourinary: Reports: No Symptoms Musculoskeletal: Reports: No Symptoms Skin: Reports: No Symptoms Neurological: Reports: No Symptoms Psychiatric: Reports: No Symptoms - Patient Data Vitals - Most Recent: Last Vital Signs Temp 37.9 C 12/04/18 04:00 Pulse 95 12/04/18 04:00 Resp 18 12/04/18 07:53 BP 120/70 12/04/18 04:00 Pulse Ox 96 12/04/18 07:53 Weight - Most Recent: 142.383 kg I&O - Last 24 Hours: Intake & Output 12/03/18 12/04/18 12/04/18 22:59 06:59 14:59 Intake Total 1049 Output Total 250 Balance 799 Lab Results Last 24 Hrs: Laboratory Results - last 24 hr 12/03/18 12/03/18 12/03/18 Range/Units 20:10 21:28 21:28 WBC 24.60 H (4.0-11.0) K/uL RBC 5.48 (4.50-5.90) M/uL Hgb 16.0 (13.0-17.0) g/dL Hct 46.9 (38.0-50.0) % MCV 85.6 (80.0-98.0) fL MCH 29.2 (27.0-32.0) pg MCHC 34.1 (31.0-37.0) g/dL RDW Std Deviation 41.4 (28.0-62.0) fl RDW Coeff of Papo 13 (11.0-15.0) % Plt Count 214 (150-400) K/uL MPV 11.00 (7.40-12.00) fL Neut % (Auto) (48.0-80.0) % Lymph % (Auto) (16.0-40.0) % [place] % (Auto) (0.0-15.0) % Eos % (Auto) (0.0-7.0) % Baso % (Auto) (0.0-1.5) % Neut # (Auto) (1.4-5.7) K/uL Lymph # (Auto) (0.6-2.4) K/uL [place] # (Auto) (0.0-0.8) K/uL Eos # (Auto) (0.0-0.7) K/uL Baso # (Auto) (0.0-0.1) K/uL Add Manual Diff YES Neutrophils % (Manual) 76 (48.0-80.0) % Band Neutrophils % 11 % Lymphocytes % (Manual) 8 L (16.0-40.0) % Monocytes % (Manual) 5 (0.0-15.0) % Nucleated RBC % 0.0 /100WBC Absolute Seg Neuts 18.7 H (1.4-5.7) Band Neutrophils # 2.7 Lymphocytes # (Manual) 2.0 (0.6-2.4) Monocytes # (Manual) 1.2 H (0.0-0.8) Nucleated RBCs # 0 K/uL Lactate (0.20-2.00) mmol/L Sodium 132 L (136-148) mmol/L Potassium 3.6 (3.5-5.1) mmol/L Chloride 97 L (98-107) mmol/L Carbon Dioxide 23.8 (21.0-32.0) mmol/L BUN 18 (7.0-18.0) mg/dL Creatinine 1.2 (0.8-1.3) mg/dL Est Cr Clr Drug Dosing 90.38 mL/min Estimated GFR (MDRD) > 60.0 ml/min Glucose 178 H (74-106) mg/dL POC Glucose (60-110) mg/dL Calcium 9.5 (8.5-10.1) mg/dL Total Bilirubin 1.5 H (0.2-1.0) mg/dL AST 19 (15-37) IU/L ALT 37 (14-63) IU/L Alkaline Phosphatase 82 (46-116) U/L Troponin I (0.000-0.056) ng/mL Total Protein 8.3 H (6.4-8.2) g/dL Albumin 4.3 (3.4-5.0) g/dL Globulin 4.0 (2.6-4.0) g/dL Albumin/Globulin Ratio 1.1 (0.9-1.6) Lipase 100 (73-393) U/L Urine Color YELLOW Urine Appearance CLEAR Urine pH 5.5 (5.0-8.0) Ur Specific [place] 1.010 (1.001-1.035) Urine Protein NEGATIVE (NEGATIVE) mg/dL Urine Glucose (UA) >=1000 (NEGATIVE) mg/dL Urine Ketones NEGATIVE (NEGATIVE) mg/dL Urine Occult Blood NEGATIVE (NEGATIVE) Urine Nitrite NEGATIVE (NEGATIVE) Urine Bilirubin NEGATIVE (NEGATIVE) Urine Urobilinogen 0.2 (<2.0) EU/dL Ur Leukocyte Esterase NEGATIVE (NEGATIVE) 12/03/18 12/03/18 12/04/18 Range/Units 21:28 21:28 05:15 WBC 25.11 H (4.0-11.0) K/uL RBC 4.87 (4.50-5.90) M/uL Hgb 13.9 (13.0-17.0) g/dL Hct 42.8 (38.0-50.0) % MCV 87.9 (80.0-98.0) fL MCH 28.5 (27.0-32.0) pg MCHC 32.5 (31.0-37.0) g/dL RDW Std Deviation 43.9 (28.0-62.0) fl RDW Coeff of Papo 14 (11.0-15.0) % Plt Count 180 (150-400) K/uL MPV 10.70 (7.40-12.00) fL Neut % (Auto) 78.2 (48.0-80.0) % Lymph % (Auto) 11.0 L (16.0-40.0) % [place] % (Auto) 10.5 (0.0-15.0) % Eos % (Auto) 0.1 (0.0-7.0) % Baso % (Auto) 0.2 (0.0-1.5) % Neut # (Auto) 19.6 H (1.4-5.7) K/uL Lymph # (Auto) 2.8 H (0.6-2.4) K/uL [place] # (Auto) 2.6 H (0.0-0.8) K/uL Eos # (Auto) 0.0 (0.0-0.7) K/uL Baso # (Auto) 0.0 (0.0-0.1) K/uL Add Manual Diff Neutrophils % (Manual) (48.0-80.0) % Band Neutrophils % % Lymphocytes % (Manual) (16.0-40.0) % Monocytes % (Manual) (0.0-15.0) % Nucleated RBC % 0.0 /100WBC Absolute Seg Neuts (1.4-5.7) Band Neutrophils # Lymphocytes # (Manual) (0.6-2.4) Monocytes # (Manual) (0.0-0.8) Nucleated RBCs # 0 K/uL Lactate 2.0 (0.20-2.00) mmol/L Sodium (136-148) mmol/L Potassium (3.5-5.1) mmol/L Chloride (98-107) mmol/L Carbon Dioxide (21.0-32.0) mmol/L BUN (7.0-18.0) mg/dL Creatinine (0.8-1.3) mg/dL Est Cr Clr Drug Dosing mL/min Estimated GFR (MDRD) ml/min Glucose (74-106) mg/dL POC Glucose (60-110) mg/dL Calcium (8.5-10.1) mg/dL Total Bilirubin (0.2-1.0) mg/dL AST (15-37) IU/L ALT (14-63) IU/L Alkaline Phosphatase (46-116) U/L Troponin I < 0.050 (0.000-0.056) ng/mL Total Protein (6.4-8.2) g/dL Albumin (3.4-5.0) g/dL Globulin (2.6-4.0) g/dL Albumin/Globulin Ratio (0.9-1.6) Lipase (73-393) U/L Urine Color Urine Appearance Urine pH (5.0-8.0) Ur Specific [place] (1.001-1.035) Urine Protein (NEGATIVE) mg/dL Urine Glucose (UA) (NEGATIVE) mg/dL Urine Ketones (NEGATIVE) mg/dL Urine Occult Blood (NEGATIVE) Urine Nitrite (NEGATIVE) Urine Bilirubin (NEGATIVE) Urine Urobilinogen (<2.0) EU/dL Ur Leukocyte Esterase (NEGATIVE) 06/20/19 06/20/19 06/20/19 Range/Units 05:15 05:15 07:33 WBC (4.0-11.0) K/uL RBC (4.50-5.90) M/uL Hgb (13.0-17.0) g/dL Hct (38.0-50.0) % MCV (80.0-98.0) fL MCH (27.0-32.0) pg MCHC (31.0-37.0) g/dL RDW Std Deviation (28.0-62.0) fl RDW Coeff of Papo (11.0-15.0) % Plt Count (150-400) K/uL MPV (7.40-12.00) fL Neut % (Auto) (48.0-80.0) % Lymph % (Auto) (16.0-40.0) % [place] % (Auto) (0.0-15.0) % Eos % (Auto) (0.0-7.0) % Baso % (Auto) (0.0-1.5) % Neut # (Auto) (1.4-5.7) K/uL Lymph # (Auto) (0.6-2.4) K/uL [place] # (Auto) (0.0-0.8) K/uL Eos # (Auto) (0.0-0.7) K/uL Baso # (Auto) (0.0-0.1) K/uL Add Manual Diff Neutrophils % (Manual) (48.0-80.0) % Band Neutrophils % % Lymphocytes % (Manual) (16.0-40.0) % Monocytes % (Manual) (0.0-15.0) % Nucleated RBC % /100WBC Absolute Seg Neuts (1.4-5.7) Band Neutrophils # Lymphocytes # (Manual) (0.6-2.4) Monocytes # (Manual) (0.0-0.8) Nucleated RBCs # K/uL Lactate 1.1 (0.20-2.00) mmol/L Sodium 136 (136-148) mmol/L Potassium 4.5 (3.5-5.1) mmol/L Chloride 102 (98-107) mmol/L Carbon Dioxide 26.2 (21.0-32.0) mmol/L BUN 21 H (7.0-18.0) mg/dL Creatinine 1.2 (0.8-1.3) mg/dL Est Cr Clr Drug Dosing 90.38 mL/min Estimated GFR (MDRD) > 60.0 ml/min Glucose 139 H (74-106) mg/dL POC Glucose 134 H (60-110) mg/dL Calcium 8.2 L (8.5-10.1) mg/dL Total Bilirubin 1.5 H (0.2-1.0) mg/dL AST 15 (15-37) IU/L ALT 27 (14-63) IU/L Alkaline Phosphatase 63 (46-116) U/L Troponin I (0.000-0.056) ng/mL Total Protein 6.9 (6.4-8.2) g/dL Albumin 3.4 (3.4-5.0) g/dL Globulin 3.5 (2.6-4.0) g/dL Albumin/Globulin Ratio 1.0 (0.9-1.6) Lipase (73-393) U/L Urine Color Urine Appearance Urine pH (5.0-8.0) Ur Specific [place] (1.001-1.035) Urine Protein (NEGATIVE) mg/dL Urine Glucose (UA) (NEGATIVE) mg/dL Urine Ketones (NEGATIVE) mg/dL Urine Occult Blood (NEGATIVE) Urine Nitrite (NEGATIVE) Urine Bilirubin (NEGATIVE) Urine Urobilinogen (<2.0) EU/dL Ur Leukocyte Esterase (NEGATIVE) Med Orders - Current: Current Medications Diphenhydramine HCl (Benadryl) 50 mg IVPUSH Q4H PRN PRN Reason: Itching Hydralazine HCl (Apresoline) 10 mg IVPUSH Q4H PRN PRN Reason: Hypertension Hydromorphone HCl (Dilaudid) 0.5 mg IV Q1H PRN PRN Reason: pain Last Admin: 12/04/18 05:34 Dose: 0.5 mg Sodium Chloride (Normal Saline) 1,000 mls @ 125 mls/hr IV STAT [facility]IO Last Infusion: 12/04/18 01:31 Dose: 400 mls/hr Piperacillin Sod/Tazobactam (Sod 3.375 gm/ Sodium Chloride) 50 mls @ 100 mls/ hr IV Q6H [facility] Last Admin: 12/04/18 06:19 Dose: 100 mls/hr Sodium Chloride (Normal Saline) 1,000 mls @ 150 mls/hr IV ASDIRECTED [facility] Last Admin: 12/04/18 02:46 Dose: 150 mls/hr Insulin Aspart (Novolog) 0 unit SUBCUT ACBREAKFASTANDBED [facility]; Protocol Ondansetron HCl (Zofran) 4 mg IVPUSH Q6H PRN PRN Reason: Nausea/Vomiting Oxycodone/Acetaminophen (Percocet 325-5 Mg) 2 tab PO Q4H PRN PRN Reason: Pain (moderate 4-6) Last Admin: 12/04/18 06:26 Dose: 2 tab Pantoprazole Sodium (Protonix Iv) 40 mg IVPUSH DAILY [facility] Last Admin: 12/04/18 02:33 Dose: 40 mg Promethazine HCl (Phenergan) 25 mg IM Q6H PRN PRN Reason: Nausea Sodium Chloride (Saline Flush) 10 ml FLUSH ASDIRECTED PRN PRN Reason: Keep Vein Open Sodium Chloride (Saline Flush) 2.5 ml FLUSH ASDIRECTED PRN PRN Reason: Keep Vein Open Sodium Chloride (Normal Saline) 10 ml IV ASDIRECTED PRN PRN Reason: IV Use Discontinued Medications Hydromorphone HCl (Dilaudid) 1 mg IVPUSH ONETIME ONE Stop: 12/03/18 22:42 Last Admin: 12/03/18 22:49 Dose: 1 mg Hydromorphone HCl (Dilaudid) 0.5 mg IVPUSH Q1H PRN PRN Reason: Pain (severe 7-10) Sodium Chloride (Normal Saline) 1,000 mls @ 999 mls/hr IV STAT ONE Stop: 12/03/18 22:11 Last Admin: 12/03/18 21:30 Dose: 999 mls/hr Ceftriaxone Sodium/Dextrose 1 (gm/ Premix) 50 mls @ 100 mls/hr IV ONETIME ONE Stop: 12/03/18 23:41 Last Admin: 12/03/18 23:35 Dose: 100 mls/hr Sodium Chloride (Normal Saline) 1,000 mls @ 1,000 mls/hr IV .Bolus ONE Stop: 12/04/18 02:26 Last Admin: 12/04/18 02:35 Dose: Not Given Iopamidol (Isovue Multipack-370 (76%)) 100 ml IVPUSH ONETIME STA Stop: 12/03/18 22:32 Last Admin: 12/03/18 22:31 Dose: 100 ml Ketorolac Tromethamine (Toradol) 30 mg IVPUSH ONETIME ONE Stop: 12/03/18 21:12 Last Admin: 12/03/18 21:31 Dose: 30 mg Ondansetron HCl (Zofran) 8 mg IVPUSH ONETIME ONE Stop: 12/03/18 21:12 Last Admin: 12/03/18 21:31 Dose: 8 mg Promethazine HCl (Phenergan) 25 mg IM ONETIME ONE Stop: 12/03/18 21:56 Last Admin: 12/04/18 00:22 Dose: Not Given - Exam General: Alert, Oriented, Moderate Distress HEENT: Pupils Equal, Pupils Reactive Neck: Supple Lungs: Normal Respiratory Effort Cardiovascular: Regular Rate GI/Abdominal Exam: Tender (RLQ) Skin: Warm, Intact, Moist Neurological: No New Focal Deficit Psy/Mental Status: Alert, Normal Affect, Normal Mood - Problem List & Annotations (1) Abdominal pain SNOMED Code(s): 26999902 Code(s): R10.9 - UNSPECIFIED ABDOMINAL PAIN Status: Acute Current Visit: Yes (2) Leukocytosis SNOMED Code(s): 328465162, 739403631 Code(s): D72.829 - ELEVATED WHITE BLOOD CELL COUNT, UNSPECIFIED Status: Acute Current Visit: Yes - Problem List Review Problem List Initiated/Reviewed/Updated: Yes - My Orders Last 24 Hours: Active Orders 24 hr Category Date Time Status Patient Status [ADT] Routine ADT 12/04/18 01:15 Active Blood Glucose Check, Bedside [RC] QIDACANDBED Care 12/04/18 07:31 Active EKG Documentation Completion [RC] STAT Care 12/03/18 21:57 Active Intake and Output [RC] Q12H Care 12/04/18 01:16 Active Notify Provider Vital Signs [RC] PRN Care 12/04/18 01:21 Active Oxygen Therapy [RC] PRN Care 12/04/18 01:15 Active RT Incentive Spirometry [RC] Q1HWA Care 12/04/18 01:15 Active Up ad Grazyna [RC] ASDIRECTED Care 12/04/18 01:15 Active Vital Signs [RC] Q4H Care 12/04/18 01:15 Active NPO [Nothing Per Oral Diet] [DIET] Diet 12/04/18 Breakfast Active CHLAMYDIA AND GONORRHEA BY TMA Stat Lab 12/03/18 20:10 Received CULTURE BLOOD [BC] Stat Lab 12/03/18 21:41 Received CULTURE BLOOD [BC] Stat Lab 12/03/18 21:52 Received Acetaminophen/oxyCODONE [Percocet 325-5 MG] Med 12/04/18 01:15 Active 2 tab PO Q4H PRN HYDROmorphone [Dilaudid] Med 12/04/18 02:05 Active 0.5 mg IV Q1H PRN Insulin Aspart [NovoLOG] Med 12/04/18 07:30 Active See Protocol SUBCUT ACBREAKFASTANDBED Ondansetron [Zofran] Med 12/04/18 01:15 Active 4 mg IVPUSH Q6H PRN Pantoprazole [ProTONIX IV] Med 12/04/18 01:30 Active 40 mg IVPUSH DAILY Piperacillin/Tazobactam [Piperacil-Tazobact] 3.375 gm Med 12/04/18 01:15 Active Sodium Chloride 0.9% [Normal Saline] 50 ml IV Q6H Promethazine [Phenergan] Med 12/04/18 01:15 Active 25 mg IM Q6H PRN Sodium Chloride 0.9% [Normal Saline] Med 12/04/18 01:15 Active 10 ml IV ASDIRECTED PRN Sodium Chloride 0.9% [Normal Saline] 1,000 ml Med 12/04/18 01:15 Active IV ASDIRECTED Sodium Chloride 0.9% [Normal Saline] 1,000 ml Med 12/03/18 23:00 Active IV STAT Sodium Chloride 0.9% [Saline Flush] Med 12/04/18 01:15 Active 10 ml FLUSH ASDIRECTED PRN Sodium Chloride 0.9% [Saline Flush] Med 12/04/18 01:15 Active 2.5 ml FLUSH ASDIRECTED PRN diphenhydrAMINE [Benadryl] Med 12/04/18 01:15 Active 50 mg IVPUSH Q4H PRN hydrALAZINE [Apresoline] Med 12/04/18 01:22 Active 10 mg IVPUSH Q4H PRN Blood Culture x2 Reflex Set [OM.PC] Stat Oth 12/03/18 21:11 Ordered Peripheral IV Insertion Adult [OM.PC] Urgent Oth 12/04/18 01:15 Ordered Resuscitation Status Routine Resus Stat 12/04/18 01:15 Ordered Medication Orders Diphenhydramine HCl (Benadryl) 50 mg IVPUSH Q4H PRN PRN Reason: Itching Hydralazine HCl (Apresoline) 10 mg IVPUSH Q4H PRN PRN Reason: Hypertension Hydromorphone HCl (Dilaudid) 0.5 mg IV Q1H PRN PRN Reason: pain Last Admin: 12/04/18 05:34 Dose: 0.5 mg Admin: 12/04/18 02:26 Dose: 0.5 mg Sodium Chloride (Normal Saline) 1,000 mls @ 125 mls/hr IV STAT [facility] Last Infusion: 12/04/18 01:31 Dose: 400 mls/hr Admin: 12/03/18 23:02 Dose: 125 mls/hr Piperacillin Sod/Tazobactam (Sod 3.375 gm/ Sodium Chloride) 50 mls @ 100 mls/ hr IV Q6H [facility] Last Admin: 12/04/18 06:19 Dose: 100 mls/hr Infusion: 12/04/18 02:01 Dose: 100 mls/hr Admin: 12/04/18 01:31 Dose: 100 mls/hr Sodium Chloride (Normal Saline) 1,000 mls @ 150 mls/hr IV ASDIRECTED [facility] Last Admin: 12/04/18 02:46 Dose: 150 mls/hr Insulin Aspart (Novolog) 0 unit SUBCUT ACBREAKFASTANDBED [facility]; Protocol Ondansetron HCl (Zofran) 4 mg IVPUSH Q6H PRN PRN Reason: Nausea/Vomiting Oxycodone/Acetaminophen (Percocet 325-5 Mg) 2 tab PO Q4H PRN PRN Reason: Pain (moderate 4-6) Last Admin: 12/04/18 06:26 Dose: 2 tab Admin: 12/04/18 01:30 Dose: 2 tab Pantoprazole Sodium (Protonix Iv) 40 mg IVPUSH DAILY [facility] Last Admin: 12/04/18 02:33 Dose: 40 mg Promethazine HCl (Phenergan) 25 mg IM Q6H PRN PRN Reason: Nausea Sodium Chloride (Saline Flush) 10 ml FLUSH ASDIRECTED PRN PRN Reason: Keep Vein Open Sodium Chloride (Saline Flush) 2.5 ml FLUSH ASDIRECTED PRN PRN Reason: Keep Vein Open Sodium Chloride (Normal Saline) 10 ml IV ASDIRECTED PRN PRN Reason: IV Use - Plan Plan (Free Text/Narrative):: Given the patient's ongoing fever, RLQ pain, and unchanged WBC, he needs to undergo an appendectomy. His appendix maybe necrotic which is why it could not be found on CT. I explained to him that we will perform a laparoscopic possible open appendectomy and possibly an exploratory laparotomy depending on what intra -abdominal process is found. We discussed the procedure, expected perioperative course and risks including bleeding, infection or damage to surrounding structures. He verbalized understanding and wishes to proceed.
[2018-12-04] MEDS: Insulin Aspart 100 Units/ML 3 ML Pen SUBCUT SCH ×2 (08:57→21:20)
[2018-12-04] MEDS ORDERED: fentaNYL 250 MCG/5 ML SDV ONE (11:03)
[2018-12-04] MEDS ORDERED: Propofol 200 MG/20 ML SDV ONE (11:03)
[2018-12-04] MEDS ORDERED: Succinylcholine 200 MG/10 ML MDV ONE (11:05)
[2018-12-04] MEDS ORDERED: Neostigmine Methylsulfate 1 MG/ML 5 ML Syringe ONE (11:05)
[2018-12-04] MEDS ORDERED: Glycopyrrolate 0.2 MG/ML SDV ONE (11:05)
[2018-12-04] MEDS ORDERED: Ondansetron 4 MG/2 ML SDV ONE (11:06)
[2018-12-04] MEDS ORDERED: Bupivacaine 0.5% 30 ML SDV ONE (11:10)
[2018-12-04] MEDS ORDERED: Phenylephrine/Normal Saline 100 MCG/ML 10 ML Syringe ONE (11:48)
--- NOTE | 2018-12-04 12:59 | PCM.OPNOTE ---
- General Post-Op/Procedure Note Date of Surgery/Procedure: 12/04/18 Operative Procedure(s): Laparoscopic appendectomy Findings: Minimally enlarged and inflamed appendix Pre Op Diagnosis: Abdominal pain, leukocytosis Post-Op Diagnosis: Appendicitis Anesthesia Technique: General ET Tube Primary Surgeon: Kimmy Harding Pathology: appendix Fluid Replacement, Intraop: 1,500 Output, Urine Amount: 300 EBL in mLs: 5 Condition: Stable Free Text/Narrative:: Intake & Output 12/03/18 12/04/18 12/04/18 22:59 06:59 14:59 Intake Total 1049 Output Total 250 Balance 799
[2018-12-04 13:33] LABS: HEMOGLOBIN A1C 6.5 % (4.5-6.2)
--- NOTE | 2018-12-04 14:01 | PCM.POSTAN ---
POST ANESTHESIA ASSESSMENT - MENTAL STATUS Mental Status: Alert, Oriented - RESPIRATORY Respiratory Status: Respiratory Rate WNL, Airway Patent, O2 Saturation Stable - CARDIOVASCULAR CV Status: Pulse Rate WNL, Blood Pressure Stable - GASTROINTESTINAL GI Status: No Symptoms - POST OP HYDRATION Hydration Status: Adequate & Stable
--- NOTE | 2018-12-04 15:07 | OR ---
SURGEON: KIMMY HARDING MD DATE OF PROCEDURE: 12/04/2018 PREOPERATIVE DIAGNOSES: 1. Right lower quadrant abdominal pain. 2. Leukocytosis. POSTOPERATIVE DIAGNOSIS: Appendicitis. PROCEDURE PERFORMED: Laparoscopic appendectomy. PRIMARY SURGEON: Kimmy Harding MD. ANESTHESIA: General endotracheal anesthesia. FLUIDS: 1500 mL of crystalloid. ESTIMATED BLOOD LOSS: 5 mL. URINE OUTPUT: 300 mL. FINDINGS: Mildly enlarged and inflamed appendix. No evidence of perforation. COMPLICATIONS: None. INDICATIONS: The patient is a 43-year-old male who presented with a 1-day history of abdominal pain. While being worked up in the ER, he developed a fever. His CBC showed a leukocytosis of 24,600. CT of the abdomen and pelvis was normal, however, they could not identify the appendix. He had an ultrasound of the abdomen to look at the gallbladder. This was somewhat limited by his body habitus, but was read as normal. He was tachycardic and therefore admitted to the floor for IV fluid resuscitation, IV antibiotics, and bowel rest. This morning, he feels like the pain is now located in the right lower quadrant. He continues to have fevers despite Tylenol and NSAIDs. The decision was made to proceed to the operating room to perform a laparoscopic possible open appendectomy. The patient and I discussed the procedure as well as the expected perioperative course. I explained the risks including bleeding, infection, or damage to surrounding structures. He verbalized understanding and wishes to proceed. PROCEDURE IN DETAIL: The patient was brought into the OR and placed on the OR table in supine position. A time-out was completed verifying the patient's name, age, date of , allergies, and procedure to be performed. General endotracheal anesthesia was induced. Prior to the case, the patient had a fever on the floor. Upon induction, his temperature was normal. The left arm was tucked at the patient's side and a Croft catheter placed. The abdomen was prepped and draped in usual standard fashion. I anesthetized an area 3 fingerbreadths below the left subcostal margin within the midclavicular line with 0.5% Marcaine plain. A 1 cm incision was made using an 11 blade over this area. A 5 mm optical trocar was used to gain entry into the left upper quadrant. All layers of the abdominal wall were visualized upon placement. The abdomen was insufflated and I inserted a 35 mm 30 degree scope. I inspected the area underneath my initial trocar placement and no damage to surrounding structures was noted. A 5 mm trocar was placed just left and lateral to the umbilicus. I then tipped the patient into Trendelenburg position and placed a left lower quadrant 12 mm trocar under direct visualization. I turned my attention to the right lower quadrant. I immediately identified the cecum. I followed the tenia down to the base of the appendix. The appendix itself was medial with the tail of the appendix coming up towards the terminal ileum. The tip of the appendix was grasped and elevated. The appendix appeared mildly dilated and inflamed. Given the possibility of acute appendicitis, the decision was made to proceed with an appendectomy. I took down the appendiceal mesentery. Using a Harmonic device, I went in distal to proximal fashion. Great care was taken to avoid thermal injury to the surrounding structures. Once the appendix was cleared of the appendiceal mesentery and I could clearly see the base inserting upon the cecum, I brought an endoscopic stapling device into the field. This was placed across the base of the appendix and I fired a 45 mm blue load across the base and transected the appendix off its attachments. The appendix was then placed in an EndoCatch bag and removed through the 12 mm port site. I inspected my staple line and it appeared to be intact. The operative field was hemostatic. There were no fluid collections around the area so I did not perform any irrigation. Given his high white count, I ran his distal small bowel as far as my ports allowed. This helped me at least the distal half of the small intestines. There was no evidence of any Meckel's diverticulum or any abnormal appearing bowel. I inspected the liver which was enlarged, but overall normal. The gallbladder was slightly distended, but very soft with no signs of inflammation. The anterior aspect of the stomach was normal and on inspection of the pelvis, I saw no fluid collections or abscesses. The 12 mm trocar was removed and I closed the trocar site, the perineum and fascia with an interrupted 0 Vicryl suture using a Edgar-Madeline device. The 5 mm trocars were removed under direct visualization and the abdomen allowed to desufflate. The subcutaneous fat in the left lower quadrant port was closed with interrupted 3-0 Vicryl sutures. The skin was closed with a running 4-0 Monocryl stitch. The 5 mm trocar sites were closed with interrupted 4-0 Monocryl. Steri-Strips and sterile dressings were applied. The patient was febrile during the procedure, but was otherwise hemodynamically stable other than some decreased sats with Trendelenburg position. He was taken to the PACU in stable condition. All counts were complete and correct at the end of the case. ROSA VILLARREAL /[id number]
[2018-12-04] MEDS: Acetaminophen 1,000 MG in Premix Bag 1 BAG IV SCH ×2 (15:32→21:21)
[2018-12-04] MEDS ORDERED: oxyCODONE 5 MG Tab PO PRN (16:57)
[2018-12-04] MEDS ORDERED: Carboxymethylcellulose Sodium 0.5% Ophth Soln 0.4 ML UD Box of 30 EYEBOTH PRN (17:36)
[2018-12-04] MEDS: Ketorolac 30 MG/ML SDV IVPUSH SCH (18:50)
[2018-12-05] MEDS: Ketorolac 30 MG/ML SDV IVPUSH SCH ×4 (00:06→18:39)
[2018-12-05] MEDS: Piperacillin/Tazobactam 3.375 GM in Sodium Chloride 0.9% 50 ML IV SCH ×4 (00:18→18:50)
[2018-12-05] MEDS: Acetaminophen 1,000 MG in Premix Bag 1 BAG IV SCH ×2 (02:22→09:19)
[2018-12-05 06:27] LABS: CHLORIDE,CL 103 mmol/L (98-107); SODIUM,NA 134 mmol/L (136-148)
[2018-12-05] MEDS: Insulin Aspart 100 Units/ML 3 ML Pen SUBCUT SCH ×2 (08:17→21:16)
--- NOTE | 2018-12-05 08:29 | PCM48HPAN ---
Post Anesthesia Note - EVALUATION WITHIN 48HRS OF ANESTHETIC Vital Signs in Normal Range: Yes Patient Participated in Evaluation: Yes Respiratory Function Stable: Yes Airway Patent: Yes Cardiovascular Function Stable: Yes Hydration Status Stable: Yes Pain Control Satisfactory: Yes Nausea and Vomiting Control Satisfactory: Yes Mental Status Recovered: Yes Resp Rate: 16
[2018-12-05] MEDS: Pantoprazole 40 MG Vial IVPUSH SCH (09:19)
[2018-12-05] MEDS: Sodium Chloride 0.9% 1,000 ML IV SCH (10:27)
[2018-12-05] MEDS ORDERED: Polyethylene Glycol 3350 Powder 17 GM Packet PO PRN (12:22)
--- NOTE | 2018-12-05 14:16 | PCM.SURGPN ---
- General Info Date of Service: 12/05/18 Functional Status: Reports: Pain Controlled, Tolerating Diet, Ambulating, Urinating - Review of Systems General: Reports: No Symptoms HEENT: Reports: No Symptoms Pulmonary: Reports: No Symptoms Cardiovascular: Reports: No Symptoms Gastrointestinal: Reports: Decreased Appetite, Flatus Genitourinary: Reports: No Symptoms Musculoskeletal: Reports: No Symptoms Skin: Reports: No Symptoms - Patient Data Vitals - Most Recent: Last Vital Signs Temp 37.1 C 12/05/18 11:36 Pulse 92 12/05/18 11:36 Resp 16 12/05/18 11:36 BP 134/72 12/05/18 11:36 Pulse Ox 94 L 12/05/18 11:36 Weight - Most Recent: 142.383 kg I&O - Last 24 Hours: Intake & Output 12/04/18 12/05/18 12/05/18 22:59 06:59 14:59 Intake Total 1350 2582 Output Total 250 400 Balance 1100 2182 Lab Results Last 24 Hrs: Laboratory Results - last 24 hr 12/04/18 12/04/18 12/05/18 Range/Units 17:25 21:16 05:20 WBC 19.56 H (4.0-11.0) K/uL RBC 4.40 L (4.50-5.90) M/uL Hgb 12.5 L (13.0-17.0) g/dL Hct 38.9 (38.0-50.0) % MCV 88.4 (80.0-98.0) fL MCH 28.4 (27.0-32.0) pg MCHC 32.1 (31.0-37.0) g/dL RDW Std Deviation 45.6 (28.0-62.0) fl RDW Coeff of Papo 14 (11.0-15.0) % Plt Count 160 (150-400) K/uL MPV 11.10 (7.40-12.00) fL Neut % (Auto) 77.4 (48.0-80.0) % Lymph % (Auto) 11.8 L (16.0-40.0) % [place] % (Auto) 9.5 (0.0-15.0) % Eos % (Auto) 1.0 (0.0-7.0) % Baso % (Auto) 0.3 (0.0-1.5) % Neut # (Auto) 15.1 H (1.4-5.7) K/uL Lymph # (Auto) 2.3 (0.6-2.4) K/uL [place] # (Auto) 1.9 H (0.0-0.8) K/uL Eos # (Auto) 0.2 (0.0-0.7) K/uL Baso # (Auto) 0.1 (0.0-0.1) K/uL Nucleated RBC % 0.0 /100WBC Nucleated RBCs # 0 K/uL Sodium (136-148) mmol/L Potassium (3.5-5.1) mmol/L Chloride (98-107) mmol/L Carbon Dioxide (21.0-32.0) mmol/L BUN (7.0-18.0) mg/dL Creatinine (0.8-1.3) mg/dL Est Cr Clr Drug Dosing mL/min Estimated GFR (MDRD) ml/min Glucose (74-106) mg/dL POC Glucose 141 H 135 H (60-110) mg/dL Calcium (8.5-10.1) mg/dL Total Bilirubin (0.2-1.0) mg/dL AST (15-37) IU/L ALT (14-63) IU/L Alkaline Phosphatase (46-116) U/L Total Protein (6.4-8.2) g/dL Albumin (3.4-5.0) g/dL Globulin (2.6-4.0) g/dL Albumin/Globulin Ratio (0.9-1.6) 12/05/18 12/05/18 12/05/18 Range/Units 05:20 06:23 12:07 WBC (4.0-11.0) K/uL RBC (4.50-5.90) M/uL Hgb (13.0-17.0) g/dL Hct (38.0-50.0) % MCV (80.0-98.0) fL MCH (27.0-32.0) pg MCHC (31.0-37.0) g/dL RDW Std Deviation (28.0-62.0) fl RDW Coeff of Papo (11.0-15.0) % Plt Count (150-400) K/uL MPV (7.40-12.00) fL Neut % (Auto) (48.0-80.0) % Lymph % (Auto) (16.0-40.0) % [place] % (Auto) (0.0-15.0) % Eos % (Auto) (0.0-7.0) % Baso % (Auto) (0.0-1.5) % Neut # (Auto) (1.4-5.7) K/uL Lymph # (Auto) (0.6-2.4) K/uL [place] # (Auto) (0.0-0.8) K/uL Eos # (Auto) (0.0-0.7) K/uL Baso # (Auto) (0.0-0.1) K/uL Nucleated RBC % /100WBC Nucleated RBCs # K/uL Sodium 134 L (136-148) mmol/L Potassium 3.6 (3.5-5.1) mmol/L Chloride 103 (98-107) mmol/L Carbon Dioxide 24.7 (21.0-32.0) mmol/L BUN 15 (7.0-18.0) mg/dL Creatinine 1.0 (0.8-1.3) mg/dL Est Cr Clr Drug Dosing 108.46 mL/min Estimated GFR (MDRD) > 60.0 ml/min Glucose 149 H (74-106) mg/dL POC Glucose 138 H 131 H (60-110) mg/dL Calcium 7.7 L (8.5-10.1) mg/dL Total Bilirubin 1.1 H (0.2-1.0) mg/dL AST 19 (15-37) IU/L ALT 25 (14-63) IU/L Alkaline Phosphatase 76 (46-116) U/L Total Protein 6.4 (6.4-8.2) g/dL Albumin 2.8 L (3.4-5.0) g/dL Globulin 3.6 (2.6-4.0) g/dL Albumin/Globulin Ratio 0.8 L (0.9-1.6) Jason Results Last 24 Hrs: Microbiology 12/03/18 21:52 Aerobic Blood Culture - Preliminary Blood - Venous - Lab Draw NO GROWTH AFTER 1 DAY Anaerobic Blood Culture - Preliminary NO GROWTH AFTER 1 DAY 12/03/18 21:41 Aerobic Blood Culture - Preliminary Blood - Venous NO GROWTH AFTER 1 DAY Anaerobic Blood Culture - Preliminary NO GROWTH AFTER 1 DAY Med Orders - Current: Current Medications Artificial Tears (Refresh Plus 0.5%) 1 each EYEBOTH Q2H PRN PRN Reason: Dry Eyes Last Admin: 12/04/18 18:55 Dose: 1 drop Diphenhydramine HCl (Benadryl) 50 mg IVPUSH Q4H PRN PRN Reason: Itching Hydralazine HCl (Apresoline) 10 mg IVPUSH Q4H PRN PRN Reason: Hypertension Hydromorphone HCl (Dilaudid) 0.5 mg IV Q1H PRN PRN Reason: pain Last Admin: 12/04/18 10:06 Dose: 0.5 mg Sodium Chloride (Normal Saline) 1,000 mls @ 125 mls/hr IV STAT [facility] Last Admin: 12/04/18 21:44 Dose: 400 mls/hr Piperacillin Sod/Tazobactam (Sod 3.375 gm/ Sodium Chloride) 50 mls @ 100 mls/ hr IV Q6H [facility] Last Admin: 12/05/18 12:37 Dose: 100 mls/hr Sodium Chloride (Normal Saline) 1,000 mls @ 150 mls/hr IV ASDIRECTED [facility] Last Admin: 12/05/18 10:27 Dose: 150 mls/hr Insulin Aspart (Novolog) 0 unit SUBCUT ACBREAKFASTANDBED [facility]; Protocol Last Admin: 12/05/18 08:17 Dose: Not Given Ketorolac Tromethamine (Toradol) 30 mg IVPUSH Q6H [facility] Stop: 12/09/18 16:58 Last Admin: 12/05/18 12:36 Dose: 30 mg Ondansetron HCl (Zofran) 4 mg IVPUSH Q6H PRN PRN Reason: Nausea/Vomiting Oxycodone HCl (Oxycodone) 10 mg PO Q4H PRN PRN Reason: Abdominal Pain Last Admin: 12/04/18 18:56 Dose: 10 mg Pantoprazole Sodium (Protonix Iv) 40 mg IVPUSH DAILY [facility] Last Admin: 12/05/18 09:19 Dose: 40 mg Polyethylene Glycol (Miralax) 17 gm PO DAILY PRN PRN Reason: Constipation Last Admin: 12/05/18 12:38 Dose: 17 gm Promethazine HCl (Phenergan) 25 mg IM Q6H PRN PRN Reason: Nausea Sodium Chloride (Saline Flush) 10 ml FLUSH ASDIRECTED PRN PRN Reason: Keep Vein Open Sodium Chloride (Saline Flush) 2.5 ml FLUSH ASDIRECTED PRN PRN Reason: Keep Vein Open Sodium Chloride (Normal Saline) 10 ml IV ASDIRECTED PRN PRN Reason: IV Use Discontinued Medications Bupivacaine HCl (Marcaine 0.5%) Confirm Administered Dose 30 ml .ROUTE .STK-MED ONE Stop: 12/04/18 11:11 Fentanyl (Sublimaze) Confirm Administered Dose 250 mcg .ROUTE .STK-MED ONE Stop: 12/04/18 11:04 Glycopyrrolate (Robinul) Confirm Administered Dose 0.8 mg .ROUTE .STK-MED ONE Stop: 12/04/18 11:06 Hydromorphone HCl (Dilaudid) 1 mg IVPUSH ONETIME ONE Stop: 12/03/18 22:42 Last Admin: 12/03/18 22:49 Dose: 1 mg Hydromorphone HCl (Dilaudid) 0.5 mg IVPUSH Q1H PRN PRN Reason: Pain (severe 7-10) Sodium Chloride (Normal Saline) 1,000 mls @ 999 mls/hr IV STAT ONE Stop: 12/03/18 22:11 Last Admin: 12/03/18 21:30 Dose: 999 mls/hr Ceftriaxone Sodium/Dextrose 1 (gm/ Premix) 50 mls @ 100 mls/hr IV ONETIME ONE Stop: 12/03/18 23:41 Last Admin: 12/03/18 23:35 Dose: 100 mls/hr Sodium Chloride (Normal Saline) 1,000 mls @ 1,000 mls/hr IV .Bolus ONE Stop: 12/04/18 02:26 Last Admin: 12/04/18 02:35 Dose: Not Given Acetaminophen 1,000 mg/ Premix 100 mls @ 400 mls/hr IV Q6H [facility] Stop: 12/05/18 14:51 Last Admin: 12/05/18 09:19 Dose: 400 mls/hr Iopamidol (Isovue Multipack-370 (76%)) 100 ml IVPUSH ONETIME STA Stop: 12/03/18 22:32 Last Admin: 12/03/18 22:31 Dose: 100 ml Ketorolac Tromethamine (Toradol) 30 mg IVPUSH ONETIME ONE Stop: 12/03/18 21:12 Last Admin: 12/03/18 21:31 Dose: 30 mg Neostigmine Methylsulfate (Neostigmine) Confirm Administered Dose 5 mg .ROUTE .STK-MED ONE Stop: 12/04/18 11:06 Ondansetron HCl (Zofran) 8 mg IVPUSH ONETIME ONE Stop: 12/03/18 21:12 Last Admin: 12/03/18 21:31 Dose: 8 mg Ondansetron HCl (Zofran) Confirm Administered Dose 4 mg .ROUTE .STK-MED ONE Stop: 12/04/18 11:07 Oxycodone/Acetaminophen (Percocet 325-5 Mg) 2 tab PO Q4H PRN PRN Reason: Pain (moderate 4-6) Last Admin: 12/04/18 06:26 Dose: 2 tab Phenylephrine HCl (Phenylephrine In Ns 100 Mcg/Ml) Confirm Administered Dose 1 mg .ROUTE .STK-MED ONE Stop: 12/04/18 11:49 Promethazine HCl (Phenergan) 25 mg IM ONETIME ONE Stop: 12/03/18 21:56 Last Admin: 12/04/18 00:22 Dose: Not Given Propofol (Diprivan 20 Ml) Confirm Administered Dose 200 mg .ROUTE .STK-MED ONE Stop: 12/04/18 11:04 Succinylcholine Chloride (Quelicin) Confirm Administered Dose 200 mg .ROUTE .STK -MED ONE Stop: 12/04/18 11:06 - Exam Wound/Incisions: Healing Well, Dressing Dry and Intact, No Drainage General: Alert, Oriented, Cooperative Lungs: Normal Respiratory Effort Cardiovascular: Regular Rate GI/Abdominal Exam: Soft, Non-Tender, Distended (mild) Extremities: Normal Inspection, Normal Range of Motion Skin: Warm, Dry, Intact Neurological: No New Focal Deficit Psy/Mental Status: Alert, Normal Affect, Normal Mood - Problem List & Annotations (1) Abdominal pain SNOMED Code(s): 97622033 Code(s): R10.9 - UNSPECIFIED ABDOMINAL PAIN Status: Acute Current Visit: Yes (2) Leukocytosis SNOMED Code(s): 284820944, 501380809 Code(s): D72.829 - ELEVATED WHITE BLOOD CELL COUNT, UNSPECIFIED Status: Acute Current Visit: Yes - Problem List Review Problem List Initiated/Reviewed/Updated: Yes - My Orders Last 24 Hours: Active Orders 24 hr Category Date Time Status Regular Diet [DIET] Diet 12/04/18 Dinner Active CBC WITH AUTO DIFF [HEME] Routine Lab 12/06/18 05:11 Ordered Carboxymethylcellulose Sodium [Refresh Plus 0.5%] Med 12/04/18 17:36 Active 1 each EYEBOTH Q2H PRN Ketorolac [Toradol] Med 12/04/18 19:00 Active 30 mg IVPUSH Q6H Polyethylene Glycol 3350 [MiraLAX] Med 12/05/18 12:22 Active 17 gm PO DAILY PRN oxyCODONE Med 12/04/18 16:57 Active 10 mg PO Q4H PRN Medication Orders Artificial Tears (Refresh Plus 0.5%) 1 each EYEBOTH Q2H PRN PRN Reason: Dry Eyes Last Admin: 12/04/18 18:55 Dose: 1 drop Diphenhydramine HCl (Benadryl) 50 mg IVPUSH Q4H PRN PRN Reason: Itching Hydralazine HCl (Apresoline) 10 mg IVPUSH Q4H PRN PRN Reason: Hypertension Hydromorphone HCl (Dilaudid) 0.5 mg IV Q1H PRN PRN Reason: pain Last Admin: 12/04/18 10:06 Dose: 0.5 mg Admin: 12/04/18 08:49 Dose: 0.5 mg Admin: 12/04/18 05:34 Dose: 0.5 mg Admin: 12/04/18 02:26 Dose: 0.5 mg Sodium Chloride (Normal Saline) 1,000 mls @ 125 mls/hr IV STAT [facility] Last Admin: 12/04/18 21:44 Dose: 400 mls/hr Infusion: 12/04/18 03:15 Dose: 400 mls/hr Infusion: 12/04/18 01:31 Dose: 400 mls/hr Admin: 12/03/18 23:02 Dose: 125 mls/hr Piperacillin Sod/Tazobactam (Sod 3.375 gm/ Sodium Chloride) 50 mls @ 100 mls/ hr IV Q6H [facility] Last Admin: 12/05/18 12:37 Dose: 100 mls/hr Infusion: 12/05/18 06:53 Dose: 100 mls/hr Admin: 12/05/18 06:23 Dose: 100 mls/hr Infusion: 12/05/18 00:48 Dose: 100 mls/hr Admin: 12/05/18 00:18 Dose: 100 mls/hr Infusion: 12/04/18 19:28 Dose: 100 mls/hr Admin: 12/04/18 18:58 Dose: 100 mls/hr Infusion: 12/04/18 14:03 Dose: 100 mls/hr Infusion: 12/04/18 13:33 Dose: 100 mls/hr Admin: 12/04/18 13:33 Dose: 100 mls/hr Infusion: 12/04/18 06:49 Dose: 100 mls/hr Admin: 12/04/18 06:19 Dose: 100 mls/hr Infusion: 12/04/18 02:01 Dose: 100 mls/hr Admin: 12/04/18 01:31 Dose: 100 mls/hr Sodium Chloride (Normal Saline) 1,000 mls @ 150 mls/hr IV ASDIRECTED [facility] Last Admin: 12/05/18 10:27 Dose: 150 mls/hr Infusion: 12/04/18 16:50 Dose: 150 mls/hr Admin: 12/04/18 10:09 Dose: 150 mls/hr Infusion: 12/04/18 09:27 Dose: 150 mls/hr Admin: 12/04/18 02:46 Dose: 150 mls/hr Insulin Aspart (Novolog) 0 unit SUBCUT ACBREAKFASTANDBED [facility]; Protocol Last Admin: 12/05/18 08:17 Dose: Not Given Admin: 12/04/18 21:20 Dose: Not Given Admin: 12/04/18 08:57 Dose: Not Given Ketorolac Tromethamine (Toradol) 30 mg IVPUSH Q6H [facility] Stop: 12/09/18 16:58 Last Admin: 12/05/18 12:36 Dose: 30 mg Admin: 12/05/18 06:12 Dose: 30 mg Admin: 12/05/18 00:06 Dose: 30 mg Admin: 12/04/18 18:50 Dose: 30 mg Ondansetron HCl (Zofran) 4 mg IVPUSH Q6H PRN PRN Reason: Nausea/Vomiting Oxycodone HCl (Oxycodone) 10 mg PO Q4H PRN PRN Reason: Abdominal Pain Last Admin: 12/04/18 18:56 Dose: 10 mg Pantoprazole Sodium (Protonix Iv) 40 mg IVPUSH DAILY [facility] Last Admin: 12/05/18 09:19 Dose: 40 mg Admin: 12/04/18 08:51 Dose: 40 mg Admin: 12/04/18 02:33 Dose: 40 mg Polyethylene Glycol (Miralax) 17 gm PO DAILY PRN PRN Reason: Constipation Last Admin: 12/05/18 12:38 Dose: 17 gm Promethazine HCl (Phenergan) 25 mg IM Q6H PRN PRN Reason: Nausea Sodium Chloride (Saline Flush) 10 ml FLUSH ASDIRECTED PRN PRN Reason: Keep Vein Open Sodium Chloride (Saline Flush) 2.5 ml FLUSH ASDIRECTED PRN PRN Reason: Keep Vein Open Sodium Chloride (Normal Saline) 10 ml IV ASDIRECTED PRN PRN Reason: IV Use - Plan Plan (Free Text/Narrative):: WBC is improved. Vitals are stable. Will continue IV zosyn until WBC within normal limits. Regular diet. D/C IVF. Anticipate d/c in 1-2 days.
[2018-12-05] MEDS ORDERED: Enoxaparin 40 MG/0.4 ML Syringe SUBCUT SCH (14:30)
[2018-12-05] MEDS ORDERED: Acetaminophen 325 MG Tab PO PRN (16:59)
--- NOTE | 2018-12-05 21:24 | CR ---
INDICATION: Decreased oxygen saturation and chest pain. TECHNIQUE: Chest 2 views COMPARISON: Chest x-ray 12/03/2018 FINDINGS: Cardiovascular and mediastinum: Heart size and vasculature are normal in caliber and appearance. Lungs and pleural spaces: No pleural effusion or pneumothorax. Somewhat patchy and linear airspace opacities within the left lower lobe. Calcified granuloma left upper lung. Bones and soft tissues: No significant findings. IMPRESSION: Patchy and linear opacities within the left lower lobe consistent with atelectasis or pneumonia, slightly increased compared to the study of 2 days prior. Dictated by Paramjit Bennett MD @ Dec 05 2018 9:21PM Signed by Dr. Paramjit Bennett @ Dec 05 2018 9:22PM
[2018-12-06] MEDS: Ketorolac 30 MG/ML SDV IVPUSH SCH ×2 (00:30→06:27)
[2018-12-06] MEDS: Piperacillin/Tazobactam 3.375 GM in Sodium Chloride 0.9% 50 ML IV SCH ×2 (01:18→06:31)
[2018-12-06 07:26] VITALS: BP 153/96
[2018-12-06] MEDS: Insulin Aspart 100 Units/ML 3 ML Pen SUBCUT SCH (07:40)
[2018-12-06] MEDS: Pantoprazole 40 MG Vial IVPUSH SCH (08:14)
--- NOTE | 2018-12-06 08:18 | PCM.DCSUM1 ---
Discharge Summary - Hospital Course Free Text/Narrative:: Patient is a 43-year-old male who presented with a one-day history of lower abdominal pain and dysuria. He was febrile in the ER and tachycardic on arrival. His gamma fluids and blood cultures are drawn. His white blood count was 24,000. CT the abdomen pelvis was unremarkable. An ultrasound of the abdomen was performed which is limited due to his body habitus is otherwise normal. On physical exam he was tender in the lower abdomen with no guarding or rebound. He is admitted to the hospital given IV Zosyn, IV fluid resuscitation, and kept nothing by mouth. Overnight he remained febrile. The next morning his pain had migrated to the right lower quadrant. The decision was made to take him for a laparoscopic appendectomy. His appendix appeared only minimally enlarged. In PACU however his abdominal pain was gone. He was watched closely in the next couple days. His vital signs remained stable and he was no longer febrile. His white blood cell count came down to 19,000 the morning of postop day #1. That evening however the patient's saturations dropped and he began complaining of left-sided chest pain radiating into his shoulder. An EKG was performed which is normal. Troponin was negative. Chest x-ray showed some hazy infiltrates in the left lower lobe. Radiologist stated that this could be atelectasis versus a pneumonia. On physical exam his lungs were clear after aggressive incentive spirometry use. It was felt this was atelectasis. His white blood cell count on postop day 2 was 10,000. He tolerated a regular diet and his vital signs again stated stable. His dressings were removed revealing some bruising around the left lower quadrant port site but they otherwise look normal. He was passing gas and denied any nausea. He was cleared for discharge. - Discharge Data Discharge Date: 12/06/18 Discharge Disposition: Home, Self-Care 01 Condition: Stable - Discharge Diagnosis/Problem(s) (1) Abdominal pain SNOMED Code(s): 74605271 ICD Code: R10.9 - UNSPECIFIED ABDOMINAL PAIN Status: Acute (2) Leukocytosis SNOMED Code(s): 939755080, 879689518 ICD Code: D72.829 - ELEVATED WHITE BLOOD CELL COUNT, UNSPECIFIED Status: Acute (3) Appendicitis SNOMED Code(s): 78219054 ICD Code: K37 - UNSPECIFIED APPENDICITIS Status: Acute - Patient Summary/Data Operative Procedure(s) Performed: Laparoscopic appendectomy - Patient Instructions Diet: Regular Diet as Tolerated, Drink 8-10+ Glasses/Day Activity: No Lifting Over 20 Pounds (for 4 weeks after surgery ), Rest and Relax Today Driving: Do Not Drive (while on narcotics ) Showering/Bathing: May Shower, No Tub Bathing/Swimming (for two weeks ) Wound/Incision Care: Keep Operative Site/Wound Site Clean and Dry Notify Provider of: Fever, Increased Pain, Swelling and Redness, Drainage, Nausea and/or Vomiting - Discharge Plan *PRESCRIPTION DRUG MONITORING PROGRAM REVIEWED*: Yes *COPY OF PRESCRIPTION DRUG MONITORING REPORT IN PATIENT FRANCESCO: Yes Prescriptions/Med Rec: Levofloxacin 750 mg PO DAILY #3 tablet Home Medications: Home Meds Lisinopril 30 mg PO DAILY 09/18/14 [History] Amitriptyline [Elavil] 50 mg PO 12/03/18 [History] Dapagliflozin Propanediol [Farxiga] 10 mg PO DAILY 12/03/18 [History] Insulin Degludec [Tresiba] 50 unit SQ DAILY 12/03/18 [History] Rosuvastatin [Crestor] 5 mg PO DAILY 12/03/18 [History] hydroCHLOROthiazide [Hydrochlorothiazide] 12.5 mg PO DAILY 12/03/18 [History] Dulaglutide [Trulicity] 1.5 mg SQ WEEKLY 12/04/18 [History] amLODIPine [Norvasc] 2.5 mg PO DAILY 12/04/18 [History] Levofloxacin 750 mg PO DAILY #3 tablet 12/06/18 [Rx] Patient Handouts: Laparoscopic Appendectomy, Adult, Care After, Acetaminophen; Oxycodone tablets, Leukocytosis, Levofloxacin tablets Referrals: Kimmy Harding MD [Physician] - 12/12/18 2:00 pm - Discharge Summary/Plan Comment DC Time >30 min.: No - General Info Date of Service: 12/06/18 Functional Status: Reports: Pain Controlled, Tolerating Diet, Ambulating, Urinating, Incentive Spirometry - Review of Systems General: Reports: No Symptoms HEENT: Reports: No Symptoms Pulmonary: Reports: No Symptoms Cardiovascular: Reports: No Symptoms Gastrointestinal: Reports: No Symptoms Genitourinary: Reports: No Symptoms Musculoskeletal: Reports: No Symptoms Skin: Reports: No Symptoms Neurological: Reports: No Symptoms - Patient Data Vitals - Most Recent: Last Vital Signs Temp 36.2 C 12/06/18 07:24 Pulse 82 12/06/18 07:24 Resp 18 12/06/18 07:24 BP 153/96 H 12/06/18 07:24 Pulse Ox 94 L 12/06/18 07:24 Weight - Most Recent: 142.383 kg I&O - Last 24 hours: Intake & Output 12/05/18 12/06/18 12/06/18 22:59 06:59 14:59 Intake Total 1720 1200 Output Total 1300 1450 Balance 420 -250 Lab Results - Last 24 hrs: Laboratory Results - last 24 hr 12/03/18 12/05/18 12/05/18 Range/Units 20:10 12:07 17:12 WBC (4.0-11.0) K/uL RBC (4.50-5.90) M/uL Hgb (13.0-17.0) g/dL Hct (38.0-50.0) % MCV (80.0-98.0) fL MCH (27.0-32.0) pg MCHC (31.0-37.0) g/dL RDW Std Deviation (28.0-62.0) fl RDW Coeff of Papo (11.0-15.0) % Plt Count (150-400) K/uL MPV (7.40-12.00) fL Neut % (Auto) (48.0-80.0) % Lymph % (Auto) (16.0-40.0) % Sherman % (Auto) (0.0-15.0) % Eos % (Auto) (0.0-7.0) % Baso % (Auto) (0.0-1.5) % Neut # (Auto) (1.4-5.7) K/uL Lymph # (Auto) (0.6-2.4) K/uL Sherman # (Auto) (0.0-0.8) K/uL Eos # (Auto) (0.0-0.7) K/uL Baso # (Auto) (0.0-0.1) K/uL Nucleated RBC % /100WBC Nucleated RBCs # K/uL POC Glucose 131 H 125 H (60-110) mg/dL Troponin I (0.000-0.056) ng/mL Chlamydia/GC Source URINE C.trachomatis RNA (TMA) Negative (Negative) N.gonorrhoeae RNA (TMA) Negative (Negative) 12/05/18 12/05/18 12/05/18 Range/Units 18:56 19:08 20:59 WBC (4.0-11.0) K/uL RBC (4.50-5.90) M/uL Hgb (13.0-17.0) g/dL Hct (38.0-50.0) % MCV (80.0-98.0) fL MCH (27.0-32.0) pg MCHC (31.0-37.0) g/dL RDW Std Deviation (28.0-62.0) fl RDW Coeff of Papo (11.0-15.0) % Plt Count (150-400) K/uL MPV (7.40-12.00) fL Neut % (Auto) (48.0-80.0) % Lymph % (Auto) (16.0-40.0) % Sherman % (Auto) (0.0-15.0) % Eos % (Auto) (0.0-7.0) % Baso % (Auto) (0.0-1.5) % Neut # (Auto) (1.4-5.7) K/uL Lymph # (Auto) (0.6-2.4) K/uL Sherman # (Auto) (0.0-0.8) K/uL Eos # (Auto) (0.0-0.7) K/uL Baso # (Auto) (0.0-0.1) K/uL Nucleated RBC % /100WBC Nucleated RBCs # K/uL POC Glucose 194 H 171 H (60-110) mg/dL Troponin I < 0.050 (0.000-0.056) ng/mL Chlamydia/GC Source C.trachomatis RNA (TMA) (Negative) N.gonorrhoeae RNA (TMA) (Negative) 12/06/18 12/06/18 Range/Units 06:16 06:28 WBC 10.08 (4.0-11.0) K/uL RBC 4.59 (4.50-5.90) M/uL Hgb 13.2 (13.0-17.0) g/dL Hct 39.4 (38.0-50.0) % MCV 85.8 (80.0-98.0) fL MCH 28.8 (27.0-32.0) pg MCHC 33.5 (31.0-37.0) g/dL RDW Std Deviation 42.5 (28.0-62.0) fl RDW Coeff of Papo 14 (11.0-15.0) % Plt Count 160 (150-400) K/uL MPV 10.70 (7.40-12.00) fL Neut % (Auto) 70.7 (48.0-80.0) % Lymph % (Auto) 15.5 L (16.0-40.0) % Sherman % (Auto) 12.6 (0.0-15.0) % Eos % (Auto) 1.0 (0.0-7.0) % Baso % (Auto) 0.2 (0.0-1.5) % Neut # (Auto) 7.1 H (1.4-5.7) K/uL Lymph # (Auto) 1.6 (0.6-2.4) K/uL Sherman # (Auto) 1.3 H (0.0-0.8) K/uL Eos # (Auto) 0.1 (0.0-0.7) K/uL Baso # (Auto) 0.0 (0.0-0.1) K/uL Nucleated RBC % 0.0 /100WBC Nucleated RBCs # 0 K/uL POC Glucose 163 H (60-110) mg/dL Troponin I (0.000-0.056) ng/mL Chlamydia/GC Source C.trachomatis RNA (TMA) (Negative) N.gonorrhoeae RNA (TMA) (Negative) [facility]KA Results - Last 24 hrs: Microbiology 12/03/18 21:52 Aerobic Blood Culture - Preliminary Blood - Venous - Lab Draw NO GROWTH AFTER 2 DAYS Anaerobic Blood Culture - Preliminary NO GROWTH AFTER 2 DAYS 12/03/18 21:41 Aerobic Blood Culture - Preliminary Blood - Venous NO GROWTH AFTER 2 DAYS Anaerobic Blood Culture - Preliminary NO GROWTH AFTER 2 DAYS Med Orders - Current: Current Medications Acetaminophen (Tylenol) 650 mg PO Q6H PRN PRN Reason: Pain Last Admin: 12/05/18 17:09 Dose: 650 mg Artificial Tears (Refresh Plus 0.5%) 1 each EYEBOTH Q2H PRN PRN Reason: Dry Eyes Last Admin: 12/04/18 18:55 Dose: 1 drop Diphenhydramine HCl (Benadryl) 50 mg IVPUSH Q4H PRN PRN Reason: Itching Enoxaparin Sodium (Lovenox) 40 mg SUBCUT Q24H [facility] Last Admin: 12/05/18 15:20 Dose: 40 mg Hydralazine HCl (Apresoline) 10 mg IVPUSH Q4H PRN PRN Reason: Hypertension Hydromorphone HCl (Dilaudid) 0.5 mg IV Q1H PRN PRN Reason: pain Last Admin: 12/04/18 10:06 Dose: 0.5 mg Piperacillin Sod/Tazobactam (Sod 3.375 gm/ Sodium Chloride) 50 mls @ 100 mls/ hr IV Q6H [facility] Last Admin: 12/06/18 06:31 Dose: 100 mls/hr Insulin Aspart (Novolog) 0 unit SUBCUT ACBREAKFASTANDBED [facility]; Protocol Last Admin: 12/06/18 07:40 Dose: 1 unit Ketorolac Tromethamine (Toradol) 30 mg IVPUSH Q6H [facility] Stop: 12/09/18 16:58 Last Admin: 12/06/18 06:27 Dose: 30 mg Ondansetron HCl (Zofran) 4 mg IVPUSH Q6H PRN PRN Reason: Nausea/Vomiting Oxycodone HCl (Oxycodone) 10 mg PO Q4H PRN PRN Reason: Abdominal Pain Last Admin: 12/04/18 18:56 Dose: 10 mg Pantoprazole Sodium (Protonix Iv) 40 mg IVPUSH DAILY [facility] Last Admin: 12/06/18 08:14 Dose: 40 mg Polyethylene Glycol (Miralax) 17 gm PO DAILY [facility] Last Admin: 12/06/18 08:14 Dose: 17 gm Promethazine HCl (Phenergan) 25 mg IM Q6H PRN PRN Reason: Nausea Sodium Chloride (Saline Flush) 10 ml FLUSH ASDIRECTED PRN PRN Reason: Keep Vein Open Sodium Chloride (Saline Flush) 2.5 ml FLUSH ASDIRECTED PRN PRN Reason: Keep Vein Open Sodium Chloride (Normal Saline) 10 ml IV ASDIRECTED PRN PRN Reason: IV Use Discontinued Medications Bupivacaine HCl (Marcaine 0.5%) Confirm Administered Dose 30 ml .ROUTE .STK-MED ONE Stop: 12/04/18 11:11 Fentanyl (Sublimaze) Confirm Administered Dose 250 mcg .ROUTE .STK-MED ONE Stop: 12/04/18 11:04 Glycopyrrolate (Robinul) Confirm Administered Dose 0.8 mg .ROUTE .STK-MED ONE Stop: 12/04/18 11:06 Hydromorphone HCl (Dilaudid) 1 mg IVPUSH ONETIME ONE Stop: 12/03/18 22:42 Last Admin: 12/03/18 22:49 Dose: 1 mg Hydromorphone HCl (Dilaudid) 0.5 mg IVPUSH Q1H PRN PRN Reason: Pain (severe 7-10) Sodium Chloride (Normal Saline) 1,000 mls @ 999 mls/hr IV STAT ONE Stop: 12/03/18 22:11 Last Admin: 12/03/18 21:30 Dose: 999 mls/hr Sodium Chloride (Normal Saline) 1,000 mls @ 125 mls/hr IV STAT [facility] Last Admin: 12/04/18 21:44 Dose: 400 mls/hr Ceftriaxone Sodium/Dextrose 1 (gm/ Premix) 50 mls @ 100 mls/hr IV ONETIME ONE Stop: 12/03/18 23:41 Last Admin: 12/03/18 23:35 Dose: 100 mls/hr Sodium Chloride (Normal Saline) 1,000 mls @ 150 mls/hr IV ASDIRECTED [facility]ARIO Last Admin: 12/05/18 10:27 Dose: 150 mls/hr Sodium Chloride (Normal Saline) 1,000 mls @ 1,000 mls/hr IV .Bolus ONE Stop: 12/04/18 02:26 Last Admin: 12/04/18 02:35 Dose: Not Given Acetaminophen 1,000 mg/ Premix 100 mls @ 400 mls/hr IV Q6H [facility] Stop: 12/05/18 14:51 Last Admin: 12/05/18 09:19 Dose: 400 mls/hr Iopamidol (Isovue Multipack-370 (76%)) 100 ml IVPUSH ONETIME STA Stop: 12/03/18 22:32 Last Admin: 12/03/18 22:31 Dose: 100 ml Ketorolac Tromethamine (Toradol) 30 mg IVPUSH ONETIME ONE Stop: 12/03/18 21:12 Last Admin: 12/03/18 21:31 Dose: 30 mg Neostigmine Methylsulfate (Neostigmine) Confirm Administered Dose 5 mg .ROUTE .STK-MED ONE Stop: 12/04/18 11:06 Ondansetron HCl (Zofran) 8 mg IVPUSH ONETIME ONE Stop: 12/03/18 21:12 Last Admin: 12/03/18 21:31 Dose: 8 mg Ondansetron HCl (Zofran) Confirm Administered Dose 4 mg .ROUTE .STK-MED ONE Stop: 12/04/18 11:07 Oxycodone/Acetaminophen (Percocet 325-5 Mg) 2 tab PO Q4H PRN PRN Reason: Pain (moderate 4-6) Last Admin: 12/04/18 06:26 Dose: 2 tab Phenylephrine HCl (Phenylephrine In Ns 100 Mcg/Ml) Confirm Administered Dose 1 mg .ROUTE .STK-MED ONE Stop: 12/04/18 11:49 Polyethylene Glycol (Miralax) 17 gm PO DAILY PRN PRN Reason: Constipation Last Admin: 12/05/18 12:38 Dose: 17 gm Promethazine HCl (Phenergan) 25 mg IM ONETIME ONE Stop: 12/03/18 21:56 Last Admin: 12/04/18 00:22 Dose: Not Given Propofol (Diprivan 20 Ml) Confirm Administered Dose 200 mg .ROUTE .STK-MED ONE Stop: 12/04/18 11:04 Succinylcholine Chloride (Quelicin) Confirm Administered Dose 200 mg .ROUTE .STK -MED ONE Stop: 12/04/18 11:06 - Exam General: Reports: Alert, Oriented, Cooperative HEENT: Reports: Pupils Equal Lungs: Reports: Clear to Auscultation, Normal Respiratory Effort Cardiovascular: Reports: Regular Rate, Regular Rhythm GI/Abdominal Exam: Soft, Non-Tender, No Distention, No Mass Extremities: Normal Inspection Skin: Reports: Warm, Dry, Intact Wound/Incisions: Reports: Healing Well, Other (ecchymosis around LLQ port site )
[2018-12-06] MEDS ORDERED: Polyethylene Glycol 3350 Powder 17 GM Packet PO SCH (09:00)
== END 2018-12-06 09:51 | disposition home or self-care (01) ==
LOC: MW.ED 19:41 → MW.MS 12-04 01:22
PROVIDERS: ADMIT Surgery; ATTEND Surgery
DX: K35.80 Unspecified acute appendicitis (principal); D72.829 Elevated white blood cell count, unspecified; E11.9 Type 2 diabetes mellitus without complications; I10 Essential (primary) hypertension; R30.0 Dysuria; E78.00 Pure hypercholesterolemia, unspecified; M19.90 Unspecified osteoarthritis, unspecified site; R91.8 Other nonspecific abnormal finding of lung field; J84.10 Pulmonary fibrosis, unspecified; E66.01 Morbid (severe) obesity due to excess calories; Z79.899 Other long term (current) drug therapy; Z79.4 Long term (current) use of insulin; Z79.2 Long term (current) use of antibiotics; Z88.6 Allergy status to analgesic agent; Z88.8 Allergy status to other drugs, medicaments and biological substances; Z88.5 Allergy status to narcotic agent; Z87.891 Personal history of nicotine dependence; Z68.41 Body mass index [BMI] 40.0-44.9, adult
CPT/HCPCS: 36415; 44970; 71045; 71046; 74178; 76705; 80053; 81003; 82962; 83036; 83605; 83690; 84484; 85025; 87040; 87491; 87591; 88304; 93005; 96361; 96365; 96367; 96375; 99285; A4217; A9270; C9113; J0131; J0330; J0696; J1170; J1650; J1815; J1885; J2370; J2405; J2543; J2704; J3010; J3490; J7040; J7050; Q9967